=== PATIENT | male | born 1945 | race Caucasian/White ===

== ENCOUNTER 2017-10-26 14:14 | Outpatient (CLI) | payer MEDICARE | END 2017-10-26 14:15 | disposition home or self-care (01) | LOC: BICMAMMO 14:14 | PROVIDERS: ATTEND Family Medicine | DX: N62 Hypertrophy of breast (principal) | CPT/HCPCS: 76642; 77066; G0279 ==

== ENCOUNTER 2017-12-22 12:58 | Outpatient (CLI) | payer MEDICARE ==
[2017-12-22 14:49] LABS: #Basophils 0.1 thou/uL (0.0-0.2); #Eosinphils 0.1 thou/uL (0.0-0.7); #Lymphocytes 2.1 thou/uL (1.20-3.40); #Monocytes 0.5 thou/uL (0.11-0.59); #Neutrophils 2.6 thou/uL (1.40-6.50); %Basophils 1.9 % (0.0-1.0); %Eosinophils 2.7 % (0.0-10.0); %Monocytes 9.6 % (0.0-10.0); %Neutrophils 47.8 % (42.0-75.0); Hemoglobin 14.1 g/dL (14.0-18.0); Mean Corpuscular HGB CONC 34.4 g/dL (32.0-36.0); Mean Corpuscular Hemoglobin 30.7 pg (27.0-31.0); Mean Corpuscular Volume 89.1 fl (80.0-94.0); Mean Platelet Volume 7.8 fL (7.4-10.4); Platelet Count 213 thou/uL (130-400); RBC Distribution Width 12.4 % (11.5-14.5); Red Blood Cell (RBC) Count 4.59 mill/uL (4.70-6.10); White Blood Cell (WBC) Count 5.5 thou/uL (4.8-10.8)
[2017-12-22 14:56] LABS: PTT 29.6 SEC (22.9-36.1); Prothrombin Time 13.2 SEC (12.0-14.7)
--- NOTE | 2017-12-22 15:04 | RAD ---
TWO VIEWS OF THE CHEST: Comparison: None. History: Pre-operative radiograph. FINDINGS: Two views of the chest show normal sized cardiomediastinal silhouette. There is no evidence of consol idation, mass, or pleural effusion. Degenerative changes are seen in the spine. Post-surgical changes are seen in the left shoulder. IMPRESSION: No evidence of acute cardiopulmonary disease. POS: [facility]
[2017-12-22 15:24] LABS: ALT (SGPT) 18 U/L (8-55); AST (SGOT) 20 U/L (5-34); Albumin 4.6 g/dL (3.4-4.8); Alkaline Phosphatase 61 U/L (40-150); Anion Gap 13 mmol/L (10-20); BUN (Urea Nitrogen) 22 mg/dL (8.4-25.7); Bilirubin, Total 0.5 mg/dL (0.2-1.2); Calc. Creatinine Clearance 0 mL/min (70-130); Calcium 10.4 mg/dL (7.8-10.44); Carbon Dioxide 30 mmol/L (23-31); Chloride 103 mmol/L (98-107); Estimated GFR-MDRD 65; Globulin 3.4 g/dL (2.4-3.5); Glucose 86 mg/dL (80-115); Potassium 4.5 mmol/L (3.5-5.1); Sodium 141 mmol/L (136-145)
== END 2017-12-22 12:59 | disposition home or self-care (01) ==
LOC: LABBT 12:58
PROVIDERS: ATTEND Internal Medicine Cardiovascular Disease
DX: Z01.818 Encounter for other preprocedural examination (principal); R94.39 Abnormal result of other cardiovascular function study
CPT/HCPCS: 71046; 80053; 85025; 85610; 85730; 93005; 93010

== ENCOUNTER 2017-12-23 05:49 | Day surgery (SDC) | payer MEDICARE ==
[2017-12-22 13:39] VITALS: BMI 25.9
[2017-12-23] MEDS ORDERED: Lidocaine 2 gm/D5W 500 ml 0 ML ONE (06:34)
[2017-12-23] MEDS ORDERED: Lidocaine 1% (PF) 30 ML VIAL ONE (06:34)
[2017-12-23] MEDS ORDERED: Heparin 10,000 UNITS/1 ML VIAL ONE (06:34)
[2017-12-23 06:59] LABS: Cardiac Risk 3.6 (Less than 4.5)
[2017-12-23] MEDS ORDERED: Protamine Sulfate 50 MG/5 ML VIAL ONE (07:37)
[2017-12-23] MEDS ORDERED: Carvedilol 3.125 MG TAB ONE (08:35)
[2017-12-23] MEDS ORDERED: Lisinopril 2.5 MG TAB ONE ×2 (08:36)
[2017-12-23] MEDS ORDERED: Sodium Chloride 0.9% 1,000 ML IV SCH (08:39)
[2017-12-23] MEDS ORDERED: traMADol HCl 50 MG TAB PO PRN (08:39)
[2017-12-23] MEDS ORDERED: Nitroglycerin 0.4 MG TAB (25 Tab Bottle) SL PRN (08:39)
[2017-12-23] MEDS ORDERED: Acetaminophen/Codeine 30-300mg Tablet PO PRN ×2 (08:39)
[2017-12-23] MEDS ORDERED: Carvedilol 3.125 MG TAB PO SCH (09:00)
[2017-12-23] MEDS ORDERED: Furosemide 20 MG TAB PO SCH (09:00)
[2017-12-23] MEDS ORDERED: Lisinopril 5 MG TAB PO SCH (09:00)
[2017-12-23] MEDS ORDERED: Iopamidol 370 76% 50 ML VIAL FS ONE (12:17)
[2017-12-23] MEDS ORDERED: Iopamidol 370 76% 100 ML VIAL ONE (12:17)
--- NOTE | 2017-12-23 14:30 | DIS ---
Discharge after cardiac catheterization. Mr. Mark was observed during the day and then discharged. At catheterization, he had ejection fract ion of 35%-40% with mild to moderate mitral regurgitation and minimal coronary artery disease with 20 % proximal LAD and 20% proximal RCA. His precatheterization EKG showed atrial fibrillation which was a new finding for him. He was in sinus rhythm during the catheterization. With his paroxysmal atrial fibrillation and left ventricular dysfunction, his medications were change d. Amlodipine was discontinued. Instead he was placed on carvedilol 3.125 b.i.d., lisinopril 5 mg q .a.m., aspirin 81 daily, atorvastatin 20 daily, fish oil 1000 mg 2 b.i.d. Also, 3 days after cathete rization, he will start Eliquis 5 mg b.i.d. A 30-day monitor will be placed to assess for suppressio n of his atrial fibrillation with carvedilol. Amiodarone may need to be added; however, I would like further proof that this medication would really need to be added long-term.
== END 2017-12-23 16:00 | disposition home or self-care (01) ==
LOC: CCL 05:49
PROVIDERS: ATTEND Internal Medicine Cardiovascular Disease
DX: I25.10 Atherosclerotic heart disease of native coronary artery without angina pectoris (principal); I34.0 Nonrheumatic mitral (valve) insufficiency; I10 Essential (primary) hypertension; E78.00 Pure hypercholesterolemia, unspecified; I87.2 Venous insufficiency (chronic) (peripheral); N62 Hypertrophy of breast; Z87.891 Personal history of nicotine dependence; Z79.82 Long term (current) use of aspirin; Z79.899 Other long term (current) drug therapy
CPT/HCPCS: 80061; 85347; 93460; 93561; C1769; J1644; J2001; J2720

== ENCOUNTER 2018-05-14 15:10 | Outpatient (CLI) | payer MEDICARE ==
--- NOTE | 2018-05-14 16:41 | MRI ---
MRI LUMBAR SPINE NONCONTRAST: 05/14/18 HISTORY: Low back pain with left leg radiculopathy. FINDINGS: Radiographs are not available for direct correlation, therefore the lowest lumbar type vertebra will be designated as L5, with the remainder numbered accordingly. The conus medullaris has a normal appearance. Vertebral body heights and alignment are maintained. De siccation of all of the intervertebral discs. T12-L1, L1-2: Mild osteophytosis. Central canal and neural foramina are patent. L2-L3: Mild posterior disc bulge. Osteophytosis of the facets. Thecal sac remains patent. Mild right foraminal stenosis. L3-4: Disc space narrowing. Posterior disc bulge and circumferential degenerative changes. Mild steno sis of the central canal. Severe bilateral foraminal stenosis. L4-5: Mild disc space narrowing. Far left lateral disc protrusion compresses the left L4 nerve root w ithin the neural foramen on the sagittal images. Thecal sac is patent. Mild to moderate right foramin al stenosis. L5-S1: Osteophytosis of the facets. Mild to moderate bilateral foraminal stenoses. IMPRESSION: Multilevel degenerative changes. Far left lateral disc protrusion at the L4-5 level compressing the l eft L4 nerve root. Clinical correlation regarding the left L4 dermatome is required. There is also se gilbert stenosis of the right neural foramen at the L3-4 level. Clinical correlation regarding the right L3 dermatome is required. POS: [facility]
== END 2018-05-14 15:11 | disposition home or self-care (01) ==
LOC: TBSIIMAG 15:10
PROVIDERS: ATTEND Orthopaedic Surgery
DX: M48.061 Spinal stenosis, lumbar region without neurogenic claudication (principal); M47.816 Spondylosis without myelopathy or radiculopathy, lumbar region; M47.26 Other spondylosis with radiculopathy, lumbar region; M99.83 Other biomechanical lesions of lumbar region
CPT/HCPCS: 72148

== ENCOUNTER 2018-06-21 08:33 | Outpatient (CLI) | payer MEDICARE ==
--- NOTE | 2018-06-21 09:50 | RAD ---
CERVICAL SPINE SERIES WITH FLEXION AND EXTENSION THREE VIEWS: History: Neck pain, right hand and wrist pain. FINDINGS: The bones appear demineralized. Vertebral bodies are normal in height. Prominent anterior osteophytic changes are seen and fairly pronounced degenerative facet change noted. Some fairly minimal disc lenora rowing is seen at C3-4, C5-6, and C6-7. There is very limited motion in either the flexion or extensi on views. I do not see any abnormal motion. IMPRESSION: Moderate arthritic changes of the spine. POS: [facility]
--- NOTE | 2018-06-21 10:37 | MRI ---
MRI CERVICAL SPINE NONCONTRAST: Date: 06-21-18 History: 73-year-old male with M54.12, cervical radiculopathy and M54.2, cervicalgia-neck pain. Comparison: No prior MRIs or CTs of the cervical spine. FINDINGS: Cervical spinal cord is normal in size and signal. Incidentally, there is a very thin, short, focus o f syrinx at the T3 level in the upper thoracic spine, with a caliber of approximately 1 mm, and crani ocaudal length of approximately 1 cm. There are bridging osteophytes at C4-5-6. Vertebral body heights are maintained. There is mild disc s pace narrowing at all levels of the cervical spine. There are broad based disc/osteophyte bar complex es encroaching upon the anterior aspect of the spinal canal, and ligamentum flavum thickening encroac crow upon the posterior aspect of the spinal canal, throughout all levels. This is greatest at C6-7. There are uncinate process osteophytes that encroach upon the neural foramina at all levels. There ar e degenerative facet changes bilaterally at all levels, asymmetrically greater on the right (severe o n the right at C2-3, C3-4, and C4-5). Moderate and mild degenerative facet changes at other levels. T he findings by individual levels are as follows: C1-2: Mild central stenosis. C2-3: Moderate central stenosis. Moderate to severe right neural foraminal stenosis. Moderate left ne ural foraminal stenosis. C3-4: Moderate to severe central stenosis. Severe bilateral neural foraminal stenosis. C4-5: Moderate central stenosis. Severe bilateral neural foraminal stenosis. C5-6: In addition to the broad based disc/osteophytic bar complex there is a more focal right paracen tral disc osteophyte complex which contacts the right ventral surface of the spinal cord. The ligamen cathie flavum thickening at this level is mild. Overall mild degree of central spinal canal stenosis. Se gilbert right neural foraminal stenosis. Moderate to severe left neural foraminal stenosis. C6-7: Severe central spinal canal stenosis, with moderate ligamentum flavum thickening abutting the d orsal surface of the spinal cord and prominent broad based/osteophytic bar complex abutting the ventr al aspect of the spinal canal, resulting in pincer-like appearance of cord entrapment as seen on sagi ttal images. Severe bilateral neural foraminal stenosis. C7-T1: No central stenosis. Moderate to severe bilateral neural foraminal stenosis. IMPRESSION: 1. High grade cervical spondylosis with multilevel degenerative disc disease and facet osteoarthrosis . 2. The facet osteoarthrosis is asymmetrically more severe on the right than left. 3. Multilevel high grade central spinal canal stenosis, and multilevel severe bilateral neural forami nal stenosis. 4. The worst degree of central stenosis is at C6-7 (severe). 5. Incidental finding of tiny focus of hydromyelia at T3. POS: [facility]
== END 2018-06-21 08:34 | disposition home or self-care (01) ==
LOC: TBSIIMAG 08:33
PROVIDERS: ATTEND Surgery
DX: M47.22 Other spondylosis with radiculopathy, cervical region (principal); M50.10 Cervical disc disorder with radiculopathy, unspecified cervical region; M48.02 Spinal stenosis, cervical region
CPT/HCPCS: 72040; 72141

== ENCOUNTER 2018-09-28 04:57 | Outpatient (CLI) | payer MEDICARE ==
[2018-09-28 12:21] LABS: Hemoglobin 13.1 g/dL (14.0-18.0); Mean Corpuscular HGB CONC 33.1 g/dL (32.0-36.0); Mean Corpuscular Volume 90.5 fL (78.0-98.0); Mean Platelet Volume 7.7 fL (7.4-10.4); Platelet Count 221 thou/uL (130-400); RBC Distribution Width 12.7 % (11.5-14.5); Red Blood Cell (RBC) Count 4.38 mill/uL (4.70-6.10); White Blood Cell (WBC) Count 5.7 thou/uL (4.8-10.8)
[2018-09-28 12:23] LABS: INR-International Normal Ratio 1.4; Prothrombin Time 17.7 SEC (12.0-14.7)
[2018-09-28 12:24] LABS: PTT 40.3 SEC (22.9-36.1)
[2018-09-28 12:41] LABS: Anion Gap 12 mmol/L (10-20); BUN (Urea Nitrogen) 15 mg/dL (8.4-25.7); Calc. Creatinine Clearance 0 mL/min (70-130); Carbon Dioxide 27 mmol/L (23-31); Chloride 105 mmol/L (98-107); Estimated GFR-MDRD 68; Glucose 111 mg/dL (83-110); Potassium 4.3 mmol/L (3.5-5.1); Sodium 140 mmol/L (136-145)
== END 2018-09-28 04:58 | disposition home or self-care (01) ==
LOC: LABBT 04:57
PROVIDERS: ATTEND Surgery
DX: Z01.812 Encounter for preprocedural laboratory examination (principal); M48.02 Spinal stenosis, cervical region; M54.12 Radiculopathy, cervical region
CPT/HCPCS: 80048; 85027; 85610; 85730

== ENCOUNTER 2018-10-05 09:02 | Inpatient (IN) | payer MEDICARE ==
[2018-09-28 10:59] VITALS: BMI 26.5
[2018-10-05] MEDS ORDERED: Fentanyl 100 MCG/2 ML VIAL ONE ×3 (10:16→17:09)
[2018-10-05] MEDS ORDERED: Lidocaine 1% PF 5 ML VIAL ONE ×3 (10:17→13:34)
[2018-10-05] MEDS ORDERED: Rocuronium Bromide 50 MG/5 ML VIAL ONE (10:17)
[2018-10-05] MEDS ORDERED: PROPOFOL 20 ML ONE (10:17)
[2018-10-05 11:34] LABS: PTT 33.3 SEC (22.9-36.1); Prothrombin Time 13.5 SEC (12.0-14.7)
[2018-10-05] MEDS ORDERED: Thrombin 5000 UNITS/5 ML VIAL ONE (12:05)
[2018-10-05] MEDS ORDERED: Sodium Chloride 0.9% 10 ML ONE (12:05)
[2018-10-05] MEDS ORDERED: Rocuronium Bromide 10 MG/ML (10ML VIAL) ONE (13:34)
[2018-10-05] MEDS ORDERED: Glycopyrrolate 0.2 MG/ML 5 ML SYRINGE ONE (13:34)
[2018-10-05] MEDS ORDERED: ePHEDrine 50 MG/ML VIAL ONE (13:34)
[2018-10-05] MEDS ORDERED: Ondansetron PF 4 MG/2 ML Vial ONE (13:34)
[2018-10-05] MEDS ORDERED: PROVENTIL INHALER 6.7 G (200 INHALATIONS) ONE (13:34)
[2018-10-05] MEDS ORDERED: Dexamethasone 20 MG/5 ML VIAL ONE ×2 (13:34)
[2018-10-05] MEDS ORDERED: Vecuronium 10 MG VIAL ONE (13:34)
[2018-10-05] MEDS ORDERED: PROPOFOL 200 MG/20 ML VIAL ONE (13:34)
[2018-10-05] MEDS ORDERED: Albuterol Sulfate HFA (OR ONLY) ONE (14:59)
[2018-10-05] MEDS ORDERED: Meperidine HCl/PF 25 MG/ML VIAL SLOW IVP PRN (15:18)
[2018-10-05] MEDS ORDERED: PACU-Morphine 4MG/ML VIAL SLOW IVP PRN (15:18)
[2018-10-05] MEDS ORDERED: Morphine Sulfate 2 MG/ML SYRINGE SLOW IVP PRN (15:18)
[2018-10-05] MEDS ORDERED: HYDROmorphone 2 MG/ML VIAL SLOW IVP PRN (15:18)
[2018-10-05] MEDS ORDERED: Ondansetron HCl/PF 4 MG/2 ML Vial IVP PRN (15:18)
[2018-10-05] MEDS ORDERED: Promethazine HCl 25 MG/ML VIAL SLOW IVP PRN (15:18)
[2018-10-05] MEDS ORDERED: Promethazine HCl 25 MG/ML VIAL IM PRN (15:18)
[2018-10-05] MEDS ORDERED: Milk Of Magnesia 30 ML UDCUP PO PRN (15:19)
[2018-10-05] MEDS ORDERED: Bisacodyl 10 MG SUPP PR PRN (15:19)
[2018-10-05] MEDS ORDERED: Acetaminophen/Codeine 30-300mg Tablet PO PRN (15:19)
[2018-10-05] MEDS ORDERED: Fleet Enema 133 ML BOT PR PRN (15:19)
[2018-10-05] MEDS ORDERED: traMADol HCl 50 MG TAB PO PRN (15:19)
[2018-10-05] MEDS ORDERED: Acetaminophen 325 MG TAB PO PRN (15:19)
[2018-10-05] MEDS ORDERED: Morphine 4 MG/ML VIAL SLOW IVP PRN (15:19)
[2018-10-05] MEDS ORDERED: Mag-Al 1200 mg/1200 mg/30 ML UDCUP PO PRN (15:19)
[2018-10-05] MEDS ORDERED: Fluticasone Propionate Nasal Spray 16 gm Bottle NASAL PRN (15:20)
[2018-10-05] MEDS: Sodium Chloride 0.9% 1,000 ML IV SCH (18:29)
[2018-10-05] MEDS: CEFAZOLIN 2 GM in Premix Bag 1 BAG IVPB SCH (18:29)
[2018-10-05] MEDS: Amlodipine 5 MG TAB PO SCH (20:40)
[2018-10-05] MEDS: Ezetimibe 10 MG TAB PO SCH (20:41)
[2018-10-05] MEDS: Atorvastatin Calcium 40 MG TAB PO SCH (20:41)
[2018-10-05] MEDS: Carvedilol 3.125 MG TAB PO SCH (20:41)
[2018-10-05] MEDS: HYDROcodone/Acetaminophen 7.5/325 mg Tablet PO PRN (20:55)
[2018-10-06] MEDS: CEFAZOLIN 2 GM in Premix Bag 1 BAG IVPB SCH ×3 (01:06→17:20)
[2018-10-06] MEDS: HYDROcodone/Acetaminophen 7.5/325 mg Tablet PO PRN ×3 (01:06→21:44)
[2018-10-06] MEDS: Sodium Chloride 0.9% 1,000 ML IV SCH ×2 (04:44→17:25)
[2018-10-06] MEDS: Amiodarone 200 MG TAB PO SCH (08:37)
[2018-10-06] MEDS: Furosemide 20 MG TAB PO SCH (08:37)
[2018-10-06] MEDS: Carvedilol 3.125 MG TAB PO SCH ×2 (08:38→21:37)
--- NOTE | 2018-10-06 10:47 | PRG ---
DATE OF SERVICE: 10/06/2018 SUBJECTIVE: Mr. Mark is postoperative day 1 from C6-7 ACDF. He states he has had improvement in his bilateral arm pain. He is about to work with physiatry. He has had 70 mL out from his drain and we will keep this in place. He is significantly dysphonic this morning, but with mild dysphagia. We will continue to watch him today, work with physiatry, and possible discharge tomorrow. Job ID: [id number]
--- NOTE | 2018-10-06 10:50 | OP ---
DATE OF PROCEDURE: 10/05/2018 SENIOR EXAMINER: Shahab Landrum PA-C PREPROCEDURE DIAGNOSIS: Cervical stenosis with myelopathy and radiculopathy. POSTPROCEDURE DIAGNOSIS: Cervical stenosis with myelopathy and radiculopathy. PROCEDURES PERFORMED: 1. C6-C7 anterior diskectomy for decompression of spinal cord and nerve roots. 2. Placement of interbody spacer following preparation of endplates, packed with local bone autograft obtained from same incision allograft C6-C7 for arthrodesis. 3. Anterior cervical plate and screw fixation, C6-C7. 4. Use of operative microscope for microdissection. DESCRIPTION OF PROCEDURE: After informed consent was obtained from the patient, the patient was brought to the OR. Proper patient, pause and identification were carried out. He was placed under excellent general endotracheal anesthesia and positioned supine on the OR table. Cervical spine was kept in neutral position. We identified a linear evan that would allow for approach to the C6-C7 segment. This region was sterilely cleansed, prepared, and draped. Proper patient, pause, and identification were carried out. The wound was then opened with combination of sharp, monopolar and blunt dissection, proceeded lateral to the tracheoesophageal bundle medial to the right carotid sheath. His right carotid artery was quite medial and he had a very patulous tracheoesophageal bundle. Retractors were placed. Localization film confirmed our area of interest. We then performed distraction at C6-C7. The microscope was brought in for microdissection. Diskectomy was performed at C6-C7, decompression of neural elements. Interbody spacer appropriate dimension was placed, packed with graft for arthrodesis. We then removed the microscope and anterior cervical plate and screw fixation, C6-C7 then occurred. Copious irrigation occurred throughout as did maximizing hemostasis. The wound was then closed in anatomic layers over drain. The patient then emerged from anesthesia. Job ID: [id number]
--- NOTE | 2018-10-06 12:19 | PDOC.PN ---
- Subjective Encounter Start Date: 10/06/18 Encounter Start Time: 08:00 Patient seen and examined. No new complaints. No overnight events - Objective MAR Reviewed: Yes Vital Signs & Weight: Vital Signs (12 hours) Temp Pulse Resp BP Pulse Ox 10/06/18 12:00 97.8 F 56 L 16 134/75 94 L 10/06/18 08:00 97.8 F 60 16 124/69 95 10/06/18 05:55 96 10/06/18 04:00 97.9 F 76 16 127/72 90 L 10/06/18 01:19 97.8 F 58 L 16 153/78 H 93 L Weight Weight 185 lb I&O: 10/05/18 10/06/18 10/07/18 06:59 06:59 06:59 Intake Total 625 250 Output Total 395 Balance 230 250 Radiology Reviewed by me: Yes Phys Exam - Physical Examination Constitutional: NAD HEENT: PERRLA, moist MMs, sclera anicteric Neck: no JVD, supple Respiratory: no wheezing, no rales, no rhonchi Cardiovascular: RRR, no significant murmur, no rub Gastrointestinal: soft, non-tender, no distention, positive bowel sounds Musculoskeletal: no edema, pulses present Neurological: non-focal, normal sensation Lymphatic: no nodes Psychiatric: normal affect Skin: no rash, normal turgor Dx/Plan (1) S/P cervical discectomy Code(s): Z98.890 - OTHER SPECIFIED POSTPROCEDURAL STATES Status: Acute (2) CAD (coronary artery disease) Code(s): I25.10 - ATHSCL HEART DISEASE OF [place] CORONARY ARTERY W/O ANG PCTRS Status: Chronic (3) Cervical spondylosis with myelopathy and radiculopathy Code(s): M47.12 - OTHER SPONDYLOSIS WITH MYELOPATHY, CERVICAL REGION; M47.22 - OTHER SPONDYLOSIS WITH RADICULOPATHY, CERVICAL REGION Status: Chronic (4) Chronic anticoagulation Code(s): Z79.01 - ACID ETCH OPERATOR (CURRENT) USE OF ANTICOAGULANTS Status: Chronic (5) Chronic systolic heart failure, ACC/AHA stage C Code(s): I50.22 - CHRONIC SYSTOLIC (CONGESTIVE) HEART FAILURE Status: Chronic (6) DJD (degenerative joint disease), lumbar Code(s): M47.816 - SPONDYLOSIS W/O MYELOPATHY OR RADICULOPATHY, LUMBAR REGION Status: Chronic (7) Dyslipidemia Code(s): E78.5 - HYPERLIPIDEMIA, UNSPECIFIED Status: Chronic (8) Hypertension Code(s): I10 - ESSENTIAL (PRIMARY) HYPERTENSION Status: Chronic (9) PAF (paroxysmal atrial fibrillation) Code(s): I48.0 - PAROXYSMAL ATRIAL FIBRILLATION Status: Chronic - Plan cont current plan of care, 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 Review of Systems - Review of Systems ENT: negative: Ear Pain, Ear Discharge, Nose Pain, Nose Discharge, Nose Congestion, Mouth Pain, Mouth Swelling, Throat Pain, Throat Swelling, Other Respiratory: negative: Cough, Dry, Shortness of Breath, Hemoptysis, SOB with Excertion, Pleuritic Pain, Sputum, Wheezing Cardiovascular: negative: chest pain, palpitations, orthopnea, paroxysmal nocturnal dyspnea, edema, light headedness, other Gastrointestinal: negative: Nausea, Vomiting, Abdominal Pain, Diarrhea, Constipation, Melena, Hematochezia, Other Genitourinary: negative: Dysuria, Frequency, Incontinence, Hematuria, Retention , Other Musculoskeletal: negative: Neck Pain, Shoulder Pain, Arm Pain, Back Pain, Hand Pain, Leg Pain, Foot Pain, Other - Medications/Allergies Allergies/Adverse Reactions: Allergies Allergy/AdvReac Type Severity Reaction Status Date / Time No Known Allergies Allergy Verified 09/28/18 10:59 Medications: Current Medications Acetaminophen (Tylenol) 650 mg PO Q4H PRN PRN Reason: BARONE/Fever Or Mild Pain (1-3) Acetaminophen/Codeine Phosphate (Tylenol #3) 1 tab PO Q3H PRN PRN Reason: Mild Pain (1-3) Hydrocodone Bitart/Acetaminophen ([place] 7.5/325) 1 tab PO Q4H PRN PRN Reason: Moderate Pain (4-6) Last Admin: 10/06/18 09:57 Dose: 1 tab Al Hydroxide/Mg Hydroxide (Maalox) 30 ml PO Q4H PRN PRN Reason: Indigestion Amiodarone HCl (Cordarone) 200 mg PO DAILY [facility] Last Admin: 10/06/18 08:37 Dose: 200 mg Amlodipine Besylate (Norvasc) 5 mg PO HS [facility] Last Admin: 10/05/18 20:40 Dose: 5 mg Atorvastatin Calcium (Lipitor) 40 mg PO HS [facility] Last Admin: 10/05/18 20:41 Dose: 40 mg Bisacodyl (Dulcolax) 10 mg DE Q12H PRN PRN Reason: Constipation Carvedilol (Coreg) 3.125 mg PO BID [facility] Last Admin: 10/06/18 08:38 Dose: 3.125 mg Ezetimibe (Zetia) 10 mg PO HS [facility] Last Admin: 10/05/18 20:41 Dose: 10 mg Fluticasone Propionate (Flonase Nasal [place]) 0 gm NASAL DAILYPRN PRN PRN Reason: Allergies Furosemide (Lasix) 20 mg PO DAILY [facility] Last Admin: 10/06/18 08:37 Dose: 20 mg Cefazolin Sodium/Dextrose 2 gm (/ Device) 50 mls @ 100 mls/hr IVPB 0200,1000, 1800 [facility] Last Admin: 10/06/18 09:56 Dose: 50 mls Sodium Chloride (Normal Saline 0.9%) 1,000 mls @ 75 mls/hr IV .[id number] [facility] Last Admin: 10/06/18 04:44 Dose: Not Given Magnesium Hydroxide (Milk Of Magnesium) 30 ml PO Q12H PRN PRN Reason: Constipation Morphine Sulfate (Morphine) 2 mg SLOW IVP Q1H PRN PRN Reason: Severe Pain (7-10) Last Admin: 10/05/18 18:30 Dose: 2 mg Sodium Biphosphate/Sodium Phosphate (Fleet Enema) 133 ml DE ONE PRN PRN Reason: Constipation Stop: 10/10/18 15:20 Sodium Chloride (Flush - Normal Saline) 10 ml IVF PRN PRN PRN Reason: Saline Flush Last Admin: 10/06/18 09:57 Dose: 10 ml Tramadol HCl (Ultram) 50 mg PO Q6H PRN PRN Reason: Mild Pain (1-3)
[2018-10-06] MEDS: Amlodipine 5 MG TAB PO SCH (21:36)
[2018-10-06] MEDS: Ezetimibe 10 MG TAB PO SCH (21:36)
[2018-10-06] MEDS: Atorvastatin Calcium 40 MG TAB PO SCH (21:37)
[2018-10-07] MEDS: CEFAZOLIN 2 GM in Premix Bag 1 BAG IVPB SCH ×3 (02:43→18:08)
[2018-10-07] MEDS: Sodium Chloride 0.9% 1,000 ML IV SCH ×2 (07:20→19:58)
--- NOTE | 2018-10-07 09:22 | PDOC.PN ---
- Subjective Encounter Start Date: 10/07/18 Encounter Start Time: 07:50 Patient seen and examined. No new complaints. No overnight events - Objective MAR Reviewed: Yes Vital Signs & Weight: Vital Signs (12 hours) Temp Pulse Resp BP BP Pulse Ox 10/07/18 08:05 52 L 10/07/18 07:57 97.8 F 48 L 16 134/78 94 L 10/07/18 04:00 98 F 49 L 16 144/78 H 92 L 10/07/18 00:00 97.7 F 54 L 16 144/81 H 92 L 10/06/18 21:36 56 L 126/71 Weight Weight 185 lb I&O: 10/06/18 10/07/18 10/08/18 06:59 06:59 06:59 Intake Total 625 1450 Output Total 395 970 Balance 230 480 Phys Exam - Physical Examination Constitutional: NAD HEENT: PERRLA, moist MMs, sclera anicteric cervical collar+, drain+ Respiratory: no wheezing, no rales, no rhonchi Cardiovascular: RRR, no significant murmur, no rub Gastrointestinal: soft, non-tender, no distention, positive bowel sounds Musculoskeletal: no edema, pulses present Neurological: non-focal, normal sensation, moves all 4 limbs Lymphatic: no nodes Psychiatric: normal affect, A&O x 3 Skin: no rash, normal turgor Dx/Plan (1) S/P cervical discectomy Code(s): Z98.890 - OTHER SPECIFIED POSTPROCEDURAL STATES Status: Acute (2) CAD (coronary artery disease) Code(s): I25.10 - ATHSCL HEART DISEASE OF [place] CORONARY ARTERY W/O ANG PCTRS Status: Chronic (3) Cervical spondylosis with myelopathy and radiculopathy Code(s): M47.12 - OTHER SPONDYLOSIS WITH MYELOPATHY, CERVICAL REGION; M47.22 - OTHER SPONDYLOSIS WITH RADICULOPATHY, CERVICAL REGION Status: Chronic (4) Chronic anticoagulation Code(s): Z79.01 - ALF (CURRENT) USE OF ANTICOAGULANTS Status: Chronic (5) Chronic systolic heart failure, ACC/AHA stage C Code(s): I50.22 - CHRONIC SYSTOLIC (CONGESTIVE) HEART FAILURE Status: Chronic (6) DJD (degenerative joint disease), lumbar Code(s): M47.816 - SPONDYLOSIS W/O MYELOPATHY OR RADICULOPATHY, LUMBAR REGION Status: Chronic (7) Dyslipidemia Code(s): E78.5 - HYPERLIPIDEMIA, UNSPECIFIED Status: Chronic (8) Hypertension Code(s): I10 - ESSENTIAL (PRIMARY) HYPERTENSION Status: Chronic (9) PAF (paroxysmal atrial fibrillation) Code(s): I48.0 - PAROXYSMAL ATRIAL FIBRILLATION Status: Chronic - Plan cont current plan of care, PT/OT * pain controlled * drain as per surgeon * discharge per primary team * medically stable * code status- full code * medication reviewed as below * symptomatic treatment. Review of Systems - Review of Systems ENT: negative: Ear Pain, Ear Discharge, Nose Pain, Nose Discharge, Nose Congestion, Mouth Pain, Mouth Swelling, Throat Pain, Throat Swelling, Other Respiratory: negative: Cough, Dry, Shortness of Breath, Hemoptysis, SOB with Excertion, Pleuritic Pain, Sputum, Wheezing Cardiovascular: negative: chest pain, palpitations, orthopnea, paroxysmal nocturnal dyspnea, edema, light headedness, other Gastrointestinal: negative: Nausea, Vomiting, Abdominal Pain, Diarrhea, Constipation, Melena, Hematochezia, Other Genitourinary: negative: Dysuria, Frequency, Incontinence, Hematuria, Retention , Other Musculoskeletal: negative: Neck Pain, Shoulder Pain, Arm Pain, Back Pain, Hand Pain, Leg Pain, Foot Pain, Other - Medications/Allergies Allergies/Adverse Reactions: Allergies Allergy/AdvReac Type Severity Reaction Status Date / Time No Known Allergies Allergy Verified 09/28/18 10:59 Medications: Current Medications Acetaminophen (Tylenol) 650 mg PO Q4H PRN PRN Reason: BARONE/Fever Or Mild Pain (1-3) Acetaminophen/Codeine Phosphate (Tylenol #3) 1 tab PO Q3H PRN PRN Reason: Mild Pain (1-3) Hydrocodone Bitart/Acetaminophen ([place] 7.5/325) 1 tab PO Q4H PRN PRN Reason: Moderate Pain (4-6) Last Admin: 10/06/18 21:44 Dose: 1 tab Al Hydroxide/Mg Hydroxide (Maalox) 30 ml PO Q4H PRN PRN Reason: Indigestion Last Admin: 10/07/18 02:53 Dose: 30 ml Amiodarone HCl (Cordarone) 200 mg PO DAILY [facility] Last Admin: 10/06/18 08:37 Dose: 200 mg Amlodipine Besylate (Norvasc) 5 mg PO HS [facility] Last Admin: 10/06/18 21:36 Dose: 5 mg Atorvastatin Calcium (Lipitor) 40 mg PO HS [facility] Last Admin: 10/06/18 21:37 Dose: 40 mg Bisacodyl (Dulcolax) 10 mg AR Q12H PRN PRN Reason: Constipation Carvedilol (Coreg) 3.125 mg PO BID [facility] Last Admin: 10/06/18 21:37 Dose: 3.125 mg Ezetimibe (Zetia) 10 mg PO HS [facility] Last Admin: 10/06/18 21:36 Dose: 10 mg Fluticasone Propionate (Flonase Nasal [place]) 0 gm NASAL DAILYPRN PRN PRN Reason: Allergies Furosemide (Lasix) 20 mg PO DAILY [facility] Last Admin: 10/06/18 08:37 Dose: 20 mg Cefazolin Sodium/Dextrose 2 gm (/ Device) 50 mls @ 100 mls/hr IVPB 0200,1000, 1800 [facility] Last Admin: 10/07/18 02:43 Dose: 50 mls Sodium Chloride (Normal Saline 0.9%) 1,000 mls @ 75 mls/hr IV .[id number] [facility] Last Admin: 10/07/18 07:20 Dose: Not Given Magnesium Hydroxide (Milk Of Magnesium) 30 ml PO Q12H PRN PRN Reason: Constipation Morphine Sulfate (Morphine) 2 mg SLOW IVP Q1H PRN PRN Reason: Severe Pain (7-10) Last Admin: 10/05/18 18:30 Dose: 2 mg Sodium Biphosphate/Sodium Phosphate (Fleet Enema) 133 ml AR ONE PRN PRN Reason: Constipation Stop: 10/10/18 15:20 Sodium Chloride (Flush - Normal Saline) 10 ml IVF PRN PRN PRN Reason: Saline Flush Last Admin: 10/07/18 02:44 Dose: 10 ml Tramadol HCl (Ultram) 50 mg PO Q6H PRN PRN Reason: Mild Pain (1-3)
[2018-10-07] MEDS: Furosemide 20 MG TAB PO SCH (09:28)
[2018-10-07] MEDS: Carvedilol 3.125 MG TAB PO SCH ×2 (10:16→21:12)
[2018-10-07] MEDS: Amiodarone 200 MG TAB PO SCH (10:16)
[2018-10-07] MEDS ORDERED: Nystatin Powder 15 GM BOT TOP PRN (10:46)
[2018-10-07] MEDS: HYDROcodone/Acetaminophen 7.5/325 mg Tablet PO PRN (14:16)
--- NOTE | 2018-10-07 15:41 | PRG ---
DATE OF SERVICE: 10/07/2018 Mr. Mark is now postoperative day #2 having undergone ACDF. He remains with dysphonia, but is swallowing pills and liquids very well. He has been up walking. He states he has significant posterior neck pain today. Continues to complain of radicular symptoms, and he states the numbness and tingling in his hands have almost completely resolved, although he does have occasional right hand tingling. He has good strengths in the bilateral upper extremities. His drain output has been 20 mL over the last 24 hours. Given the need for continued pain control, we will keep the patient overnight, but likely plan for dismissal in the morning. Please call with any changes in the patient's neurologic status. Job ID: [id number]
[2018-10-07] MEDS: Amlodipine 5 MG TAB PO SCH (21:11)
[2018-10-07] MEDS: Atorvastatin Calcium 40 MG TAB PO SCH (21:12)
[2018-10-07] MEDS: Ezetimibe 10 MG TAB PO SCH (21:12)
[2018-10-08] MEDS: CEFAZOLIN 2 GM in Premix Bag 1 BAG IVPB SCH ×3 (02:18→09:03)
[2018-10-08] MEDS: Furosemide 20 MG TAB PO SCH (09:03)
[2018-10-08] MEDS: Amiodarone 200 MG TAB PO SCH (09:09)
[2018-10-08] MEDS: Carvedilol 3.125 MG TAB PO SCH (09:09)
[2018-10-08] MEDS: Sodium Chloride 0.9% 1,000 ML IV SCH (09:10)
--- NOTE | 2018-10-08 09:54 | PRG ---
DATE OF SERVICE: SUBJECTIVE: Paolo Mark is postoperative day 2 from C6-C7 ACDF. He has had resolution in his upper extremity pain and paresthesias. He is mobilizing. He still has significant dysphonia, but he is tolerating oral clears. His drain output has dwindled and we will plan for removing this. We went over interim postoperative issues and we will plan for dismissal. I would be fine with him resuming his aspirin on the upcoming Thursday and his Eliquis the following Thursday. Job ID: [id number]
--- NOTE | 2018-10-08 10:20 | DIS ---
DATE OF ADMISSION: 10/05/2018 DATE OF DISCHARGE: 10/08/2018 PRIMARY CARE PHYSICIAN: Dirk Gudino MD DISCHARGE DISPOSITION: Home. PRIMARY DISCHARGE DIAGNOSIS: Status post anterior cervical diskectomy and foraminectomy. SECONDARY DISCHARGE DIAGNOSES: Coronary artery disease, cervical spondylosis with myelopathy, degenerative spine disease of lumbar spine, chronic anticoagulation, dyslipidemia, hypertension, paroxysmal atrial fibrillation. PRIMARY PROCEDURE/OPERATION: Anterior cervical diskectomy and foraminectomy by Dr. Arriaga on October 06, 2018. RADIOLOGICAL INVESTIGATION: None. SIGNIFICANT LABS: INR 1.0. DISCHARGE MEDICATIONS: 1. Cordarone 200 mg daily. 2. Norvasc 5 mg p.o. at bedtime. 3. Lipitor 40 mg p.o. at bedtime. 4. Coreg 3.125 mg b.i.d. 5. Zetia 10 mg at bedtime. 6. Flonase nasal spray as needed. 7. Lasix 20 mg daily. 8. The patient will resume Eliquis and aspirin when neurosurgeon clears him. CONTRAINDICATION: None. CODE STATUS: Full code. INPATIENT AUTO SELF SERVICE STATION ATTENDANT: Joo Arriaga MD was primary. Sound Team was consulted for medical management. TEST RESULTS PENDING ON DISCHARGE: None. ALLERGIES: NO KNOWN DRUG ALLERGIES. DISCHARGE PLAN: Posthospital, the patient will follow up with primary care physician in one week. The patient will follow up with Dr. Arriaga as instructed. HOSPITAL COURSE: A 73-year-old male who has chronic cervical spondylosis with radiculopathy. He has severe cervical stenosis and he was admitted electively by Dr. Arriaga for anterior cervical diskectomy and foraminectomy, which was done on October 06 without any complication. Postoperatively, Sound Team was consulted for medical comanagement. The patient's medical problems remained stable. He had drain at the surgical site and cervical collar in place. Drain was removed today by neurosurgeon. This patient was given necessary postoperative instruction by neurosurgeon team. His medical problems remained stable while in hospital. I have seen and examined the patient at bedside today. REVIEW OF SYSTEMS: All review of systems reviewed with him and negative. PHYSICAL EXAMINATION: VITAL SIGNS: Today, vital signs, temperature 97.7, pulse 52, respiratory rate 16, saturation 92%, and blood pressure 139/76. Weight 185 pounds. GENERAL: The patient is currently alert, oriented, in no acute distress. HEENT: Head; normocephalic, atraumatic. NECK: Cervical collar in place. LUNGS: Clear to auscultation without any rhonchi or rales. CARDIAC: S1, S2. Regular without any murmur. ABDOMEN: Soft and benign without any tenderness. EXTREMITIES: No edema. NEUROLOGIC: Nonfocal examination. The patient is medically stable. He will resume above-mentioned medication. Aspirin and Eliquis will be started when neurosurgeon is okay. If neurosurgeon is okay, then this patient is medically stable for discharge today. Job ID: [id number]
[2018-10-08 12:47] VITALS: BP 136/76; TEMP 97.4
== END 2018-10-08 11:10 | disposition home or self-care (01) | DRG 472 ==
LOC: SDC 09:02 → SURG B 15:18
PROVIDERS: ADMIT Surgery; ATTEND Surgery
PROC: 0RG10A0 Fusion of Cervical Vertebral Joint with Interbody Fusion Device, Anterior Approach, Anterior Column, Open Approach (ICD-10-PCS; principal; 2018-10-05)
PROC: 0RB30ZZ Excision of Cervical Vertebral Disc, Open Approach (ICD-10-PCS; 2018-10-05)
DX: M48.02 Spinal stenosis, cervical region (principal); M47.12 Other spondylosis with myelopathy, cervical region; I50.22 Chronic systolic (congestive) heart failure; M54.12 Radiculopathy, cervical region; I25.10 Atherosclerotic heart disease of native coronary artery without angina pectoris; E78.5 Hyperlipidemia, unspecified; I48.0 Paroxysmal atrial fibrillation; I11.0 Hypertensive heart disease with heart failure; R49.0 Dysphonia; R13.10 Dysphagia, unspecified; Z79.01 Long term (current) use of anticoagulants
CPT/HCPCS: 76000; 85610; 85730; C1713; C1776; J0131; J1100; J2001; J2270; J2405; J2704; J3010; J3490

== ENCOUNTER 2018-11-17 13:02 | Outpatient (CLI) | payer MEDICARE ==
--- NOTE | 2018-11-17 13:21 | RAD ---
EXAM: XR Cerv Sp Ap Lat STANDARD PROVIDED CLINICAL HISTORY: Cervical radiculopathy, cervical region disc degenerative changes. Prior postoperative changes cervic al spine. COMPARISON: 06/21/2018 FINDINGS: Diffuse osteopenia is again present. Multilevel degenerative changes of the cervical spine are again noted with prominent osteophytes seen anteriorly. Postoperative changes related to anterior cervical fusion of the C6-7 level with intradiscal prosthesis in place is now present on today's exam ination. No obvious hardware complication is seen. T1 vertebral body is mostly obscured, but no subluxation is seen at the cervicothoracic junction. Post surgical changes of left shoulder are noted which were seen on chest x-ray on 12/22/2017. Prevertebral soft tissues are within normal limits. IMPRESSION: 1. Interval postoperative changes related to anterior cervical fusion at the C6-7 level. 2. Osteopenia and multilevel degenerative changes in the cervical spine.
== END 2018-11-17 13:03 | disposition home or self-care (01) ==
LOC: TBSIIMAG 13:02
PROVIDERS: ATTEND Surgery
DX: M50.30 Other cervical disc degeneration, unspecified cervical region (principal); M47.12 Other spondylosis with myelopathy, cervical region; M48.02 Spinal stenosis, cervical region; M54.02 Panniculitis affecting regions of neck and back, cervical region; M47.22 Other spondylosis with radiculopathy, cervical region; Z98.1 Arthrodesis status; M85.88 Other specified disorders of bone density and structure, other site; Z98.890 Other specified postprocedural states
CPT/HCPCS: 72040

== ENCOUNTER 2019-08-11 14:51 | Outpatient (CLI) | payer MEDICARE ==
--- NOTE | 2019-08-11 17:19 | RAD ---
EXAM: CERVICAL SPINE THREE VIEWS: 08/11/19 HISTORY: Injury from a fall in February, feels like its catching when he is turning his head, stenosis cervical spine. COMPARISON: 11/17/18. FINDINGS: Multilevel disc osteophytosis, severe. Anterior cervical fusion changes at C6-C7. C1 and odontoid are obscured on the AP open mouth and C7 and T1 obscured on the lateral view. No prevertebral soft tissu e swelling. Heterogeneous bone demineralization. Stable appearance from prior study. IMPRESSION: Stable appearing cervical spine. Extensive disc osteophytosis and facet arthrosis evidence for spondy losis. Severe bone demineralization. POS: TPC
== END 2019-08-11 14:52 | disposition home or self-care (01) ==
LOC: TBSIIMAG 14:51
PROVIDERS: ATTEND Surgery
DX: M48.02 Spinal stenosis, cervical region (principal); M47.812 Spondylosis without myelopathy or radiculopathy, cervical region; M25.78 Osteophyte, vertebrae; M81.0 Age-related osteoporosis without current pathological fracture
CPT/HCPCS: 72040

== ENCOUNTER 2019-08-31 16:10 | Outpatient (CLI) | payer MEDICARE ==
--- NOTE | 2019-08-31 16:40 | RAD ---
PA AND LATERAL OF THE CHEST: 08/31/19 INDICATION: History of paroxysmal atrial fibrillation. COMPARISON: Prior exam dated 12/22/17. FINDINGS: The lungs are clear. Heart size is normal. No acute osseous abnormality is noted. Surgical changes i n the left shoulder is similar appearing. There has been interval placement of an ACDF involving the lower cervical spine. IMPRESSION: No acute cardiopulmonary abnormality. POS: CET
== END 2019-08-31 16:11 | disposition home or self-care (01) ==
LOC: BICRAD 16:10
PROVIDERS: ATTEND Nurse Practitioner Family
DX: I48.0 Paroxysmal atrial fibrillation (principal)
CPT/HCPCS: 71046

== ENCOUNTER 2020-01-07 21:32 | Inpatient (IN) | payer MEDICARE, OTHER ==
[~2020-01-07 21:32] MED LIST: Iopamidol-370 76% 500 ML 1 ML ONE
[2020-01-07] MEDS ORDERED: Aspirin Chewable 81 MG TAB ONE (22:00)
[2020-01-07] MEDS ORDERED: Nitroglycerin 2% Ointment 1 INCH/1 GM Packet ONE (22:00)
--- NOTE | 2020-01-07 23:35 | RAD ---
EXAM: CHEST ONE VIEW HISTORY: Chest pain, chest tightness. COMPARISON: 08/31/2019. FINDINGS: The cardiac silhouette and pulmonary vasculature are within normal limits. Mild chronic lung changes are again seen. There is no consolidation or pleural fluid seen. Postoperative changes lower cervical spine and left shoulder are again identified. There is osteopenia. Chest is overall stable c ompared to prior exam. IMPRESSION: Stable mild chronic lung changes without evidence of an acute cardiopulmonary process.
[2020-01-07 23:39] LABS: ALT (SGPT) 226 U/L (8-55); AST (SGOT) 166 U/L (5-34); Albumin 3.3 g/dL (3.4-4.8); Alkaline Phosphatase 98 U/L (40-110); Anion Gap 12 mmol/L (10-20); BUN (Urea Nitrogen) 22 mg/dL (8.4-25.7); Bilirubin, Total 0.4 mg/dL (0.2-1.2); Calc. Creatinine Clearance 0 mL/min (70-130); Calcium 7.8 mg/dL (7.8-10.44); Carbon Dioxide 25 mmol/L (23-31); Chloride 102 mmol/L (98-107); Estimated GFR-MDRD 42; Globulin 2.8 g/dL (2.4-3.5); Glucose 114 mg/dL (83-110); Lipase 20 U/L (8-78); Protein, Total 6.1 g/dL (5.8-8.1); Sodium 135 mmol/L (136-145)
[2020-01-07 23:40] LABS: #Eosinphils 0.1 thou/uL (0.0-0.7); #Monocytes 0.5 thou/uL (0.11-0.59); %Basophils 0.7 % (0.0-1.0); %Eosinophils 2.1 % (0.0-10.0); %Lymphocytes 27.1 % (21.0-51.0); %Monocytes 13.1 % (0.0-10.0); %Neutrophils 56.9 % (42.0-75.0); Hemoglobin 6.8 g/dL (14.0-18.0); Mean Corpuscular HGB CONC 30.5 g/dL (32.0-36.0); Mean Corpuscular Hemoglobin 20.8 pg (27.0-31.0); Mean Corpuscular Volume 68.3 fL (78.0-98.0); Mean Platelet Volume 9.9 fL (7.4-10.4); Platelet Count 167 thou/uL (130-400); RBC Distribution Width 14.9 % (11.5-14.5); Red Blood Cell (RBC) Count 3.28 mill/uL (4.70-6.10); White Blood Cell (WBC) Count 3.5 thou/uL (4.8-10.8)
[2020-01-07 23:41] LABS: Elliptocytes SLIGHT = 2-5 cells (100X) (0-1/hpf); MDiff Complete? YES; Microcytosis SLIGHT = 6-15 cells (100X) (0-5/hpf)
[2020-01-08 04:00] LABS: #Eosinphils 0.1 thou/uL (0.0-0.7); #Lymphocytes 0.9 thou/uL (1.20-3.40); #Monocytes 0.4 thou/uL (0.11-0.59); #Neutrophils 1.8 thou/uL (1.40-6.50); %Basophils 0.1 % (0.0-1.0); %Eosinophils 2.5 % (0.0-10.0); %Lymphocytes 27.2 % (21.0-51.0); %Monocytes 13.2 % (0.0-10.0); %Neutrophils 57.1 % (42.0-75.0); Hemoglobin 6.8 g/dL (14.0-18.0); Mean Corpuscular Hemoglobin 20.2 pg (27.0-31.0); Mean Corpuscular Volume 67.5 fL (78.0-98.0); Mean Platelet Volume 10.9 fL (7.4-10.4); Platelet Count 166 thou/uL (130-400); RBC Distribution Width 15.1 % (11.5-14.5); Red Blood Cell (RBC) Count 3.35 mill/uL (4.70-6.10); White Blood Cell (WBC) Count 3.2 thou/uL (4.8-10.8)
[2020-01-08 04:13] LABS: Iron 13 ug/dL (65-175); Iron Binding Capacity, Total 375 mcg/dL (261-462)
[2020-01-08 04:14] LABS: Anion Gap 12 mmol/L (10-20); BUN (Urea Nitrogen) 22 mg/dL (8.4-25.7); Calc. Creatinine Clearance 0 mL/min (70-130); Carbon Dioxide 25 mmol/L (23-31); Chloride 102 mmol/L (98-107); Estimated GFR-MDRD 52; Glucose 101 mg/dL (83-110); Iron 14 ug/dL (65-175); Iron Binding Capacity, Total 384 mcg/dL (261-462); Potassium 4.5 mmol/L (3.5-5.1); Sodium 134 mmol/L (136-145)
[2020-01-08 04:42] VITALS: BMI 23.8
--- NOTE | 2020-01-08 04:52 | HP ---
REASON FOR ADMISSION: Shortness of breath and chest pain. HISTORY OF PRESENT ILLNESS: This is a 74-year-old male patient who is presenting today reporting an episode of chest pain with shortness of breath. History going back to approximately a week before his presentation, he has been noticing that he has been experiencing shortness of breath, mainly with ambulation, not occurring at rest. Also, he does report postnasal drip which is somewhat chronic as per him. Also, today while walking, he developed shortness of breath and chest pain described as pressure-like in nature, localized in the retrosternal area, nonradiating. In the emergency room, he did receive a nitroglycerin patch and he felt better afterward. Currently, denies any chest pain and denies shortness of breath. He says that his shortness of breath was mainly on exertion. The patient follows with Dr. Ruano of Cardiology on a regular basis. He did see him recently a couple of months ago, and there was a plan for him to follow up with him in a week or so due to the recent symptoms. He did have a cardiac cath done in 2018, that showed an EF of 35% to 40% and minimal coronary artery disease with 20% proximal LAD and 20% proximal RCA. He was noted to have atrial fibrillation, which was at that time, a new finding. He continues to be on Eliquis. PAST MEDICAL HISTORY: 1. Chronic cervical spondylosis with radiculopathy, post anterior cervical diskectomy and foraminectomy. 2. Paroxysmal atrial fibrillation. 3. Coronary artery disease. 4. Chronic systolic heart failure, ACC/AHA, stage C. 5. High cholesterol. 6. High blood pressure. SOCIAL HISTORY: He drinks alcohol socially. Does not smoke. FAMILY HISTORY: Reviewed, found to be noncontributory. REVIEW OF SYSTEMS: All systems reviewed except the above-mentioned shortness of breath, found to be negative. PHYSICAL EXAMINATION: GENERAL: He is awake, alert, oriented, does not appear in distress. VITAL SIGNS: His blood pressure is 136/76, saturating 94% on room air, temperature is 97.4, heart rate 55 beats per minute. HEENT: Head is nontraumatic and normocephalic. Pupils are equal, reactive. Extraocular movements are intact. Nonicteric sclerae. Well injected conjunctivae. Oral mucosa normal. Nasal mucosa normal. NECK: Supple. No adenopathy. No murmur. Thyroid is not palpable. Trachea is midline. No supraclavicular adenopathy. HEART: S1 and S2 regular. No murmur. No gallops. No friction rubs. No displacement of PMI. LUNGS: FINE inspiratory crackles bilaterally. ABDOMEN: Bowel sounds are positive. Nontender abdomen. No hepatosplenomegaly. No lower extremity edema. No cyanosis noted. NEUROLOGIC: Cranial nerves 2 through 12 within normal limits. Normal motor function. Normal sensory function. Normal reflexes. LABORATORY DATA: Blood work shows WBC of 3.5, hemoglobin 6.8. His last hemoglobin was 12 in June 2019, MCV 68.3. His last MCV was 86.7. Platelets 167. Sodium 135, potassium 4, bicarb 25, creatinine of 1.62, his baseline is around 1.26. AST 166, ALT 226. BNP 145.3. EKG shows sinus bradycardia, prolonged QT. A CT of the chest does not show a PE, does show diffuse fibrosis compatible with COPD. The patient is positive for COVID-19. ASSESSMENT AND PLAN: This is a 74-year-old male patient presenting with shortness of breath and episodes of chest pain. He was found to be more anemic than before this day. He was found to be positive for COVID-19. Cardiac: The patient's symptomatology could be due to his anemia exacerbating his underlying coronary artery disease. In the setting of COVID-19, the patient will have serial cardiac enzymes, and I plan to continue his amiodarone and Coreg. We will reassess whether he can be on Eliquis and aspirin. I am planning to recheck his labs to see if really he is that anemic. Might consider consulting Cardiology, might consider consulting Gastroenterology. For deep venous thrombosis prophylaxis, to be on sequential compression devices. In regard to his anemia, we will check iron studies. This could be in the setting of chronic anticoagulation. He does have a propensity to easy bruise. GI: The patient might have chronic slow gastrointestinal bleed, which can explain his anemia. On the other hand, I did ask him if he is having melena, he denied. He said that his stool color is brown, and he never noticed any red blood in the stools. I will start him on IV Protonix. Awaiting to do a guaiac of his stools, possibly consulting Gastroenterology. I did discuss with him his code status. He wishes to be full code. Job ID: [id number]
[2020-01-08] MEDS: Acetaminophen 325 MG TAB PO PRN (05:48)
[2020-01-08 06:25] LABS: Troponin I 0.038 ng/mL (< 0.028)
[2020-01-08] MEDS: Amiodarone 200 MG TAB PO SCH (09:48)
[2020-01-08] MEDS: Pantoprazole 40 MG VIAL IVP SCH ×2 (09:48→20:53)
[2020-01-08] MEDS: Carvedilol 3.125 MG TAB PO SCH ×2 (09:48→20:53)
--- NOTE | 2020-01-08 10:18 | CT ---
PRELIMINARY REPORT/DIRECT RADIOLOGY/EMERGENCY AFTER HOURS PROCEDURE EXAM: CTA Chest with Intravenous Contrast CLINICAL HISTORY: 74-year-old male presents the emergency department via EMS for chest pain and dyspn ea. Patient notes exertional dyspnea for the last couple of weeks. He states that this is gotten appr eciably worse over the last 48 hours. Tonight he began having dyspnea associated with chest pressure after walking only approximately 10 feet. He states that he was unable to walk very far without it re curring. Tonight was the first time he had pain. He does note a cough for the last few days productiv e of a white phlegm. He denies any fevers. TECHNIQUE: Axial CTA images of the chest with intravenous contrast. Three-dimensional MIP/volume rend ered reformations were performed. CONTRAST: With; 60ML ISOVUE 370 COMPARISON: None provided. FINDINGS: PULMONARY ARTERIES There is no intraluminal filling defect suspicious for PE. AORTA No thoracic aortic aneurysm or dissection. Aberrant right subclavian artery. LUNGS The lungs are hyperinflated. Peripheral reticular densities throughout the bilateral lungs. No pulmonary mass. No focal airspace consolidation. PLEURAL SPACES No pleural effusion. No pneumothorax. HEART AND MEDIASTINUM No cardiomegaly. No significant pericardial effusion. The coronary arteries a re calcified. LYMPH NODES Calcified mediastinal and left hilar lymph nodes. BONES The bones are osteopenic. Multilevel degenerative disc disease. CHEST WALL AND UPPER ABDOMEN Multiple calcified granulomas in the liver and spleen. The other upper abdominal organs appear normal. The chest wall is unremarkable. IMPRESSION: No evidence of a pulmonary embolism. The Coronary artery disease. Peripheral fibrotic ch anges throughout the lungs with findings suggestive of COPD. Calcified mediastinal and left hilar lym ph nodes and multiple calcifications in the liver and spleen suggestive of remote granulomatous disea se. ELECTRONICALLY SIGNED BY: Yoni Villegas MD Jan 08, 2020 1:32:07 AM CDT FINAL REPORT EMERGENT AFTER HOURS CT PULMONARY ANGIOGRAM: IMPRESSION: Agree with the preliminary interpretation regarding the absence of evidence for central or segmental pulmonary embolus. Vascular calcification including coronary calcium is demonstrated. Nonspecific p eripheral ground-glass patchy foci with associated subpleural interstitial thickening. Findings coul d reflect acute or chronic interstitial disease. Correlate with concerns for atypical pneumonia. POS: FERNANDO
--- NOTE | 2020-01-08 13:24 | PDOC.HOSPP ---
- Subjective Encounter Date: 01/08/20 Encounter Time: 12:15 Subjective: no sob or nausea no hay bleeding per rectum per patient (atleast he has not noticed) lives with his - Objective Vital Signs & Weight: Vital Signs (12 hours) Temp Pulse Pulse Resp BP BP BP 01/08/20 13:00 97.3 F L 60 19 136/81 01/08/20 12:05 98.2 F 62 17 126/76 01/08/20 10:44 98.1 F 58 L 17 138/78 01/08/20 10:20 98.3 F 58 L 20 121/62 01/08/20 04:20 98.4 F 63 19 143/72 H Pulse Ox 01/08/20 13:00 95 01/08/20 12:05 95 01/08/20 10:44 94 L 01/08/20 10:20 95 01/08/20 04:20 97 Weight Weight 166 lb 6.4 oz I&O: 01/07/20 01/08/20 01/09/20 06:59 06:59 06:59 Intake Total 0 Balance 0 Result Diagrams: 01/08/20 03:48 01/08/20 03:48 Hospitalist ROS - Medication Medications: Active Medications Generic Name Dose Route Start Last Admin Trade Name Freq PRN Reason Stop Dose Admin Acetaminophen 650 mg 01/08/20 05:14 01/08/20 05:48 Tylenol PO 650 mg Q6H PRN Administration Headache/Fever or Pain Amiodarone HCl 200 mg 01/08/20 09:00 01/08/20 09:48 Cordarone PO 200 mg DAILY CARISSA Administration Carvedilol 3.125 mg 01/08/20 09:00 01/08/20 09:48 Coreg PO 3.125 mg BID CARISSA Administration Pantoprazole Sodium 40 mg 01/08/20 09:00 01/08/20 09:48 Protonix IVP 40 mg Q12HR CARISSA Administration - Exam General Appearance: awake alert Eye: PERRL, anicteric sclera ENT: no oropharyngeal lesions, dry oral mucosa Neck: supple, no JVD Heart: RRR, no murmur Respiratory: no wheezes, no rales Gastrointestinal: soft, non-tender, non-distended, normal bowel sounds Extremities: no cyanosis, no edema Neurological: cranial nerve grossly intact, no focal deficits Psychiatric: A&O x 3 Hosp A/P (1) Pneumonia due to COVID-19 virus Code(s): U07.1 - COVID-19; J12.89 - OTHER VIRAL PNEUMONIA Status: Acute (2) Acute blood loss anemia Code(s): D62 - ACUTE POSTHEMORRHAGIC ANEMIA Status: Acute (3) GI bleed Code(s): K92.2 - GASTROINTESTINAL HEMORRHAGE, UNSPECIFIED Status: Suspected Qualifiers: GI bleed type/associated pathology: unspecified gastrointestinal hemorrhage type Qualified Code(s): K92.2 - Gastrointestinal hemorrhage, unspecified (4) CAD (coronary artery disease) Code(s): I25.10 - ATHSCL HEART DISEASE OF [place] CORONARY ARTERY W/O ANG PCTRS Status: Chronic Qualifiers: Coronary Disease-Associated Artery/Lesion type: [place] artery [place] vs. transplanted heart: [place] heart Associated angina: without angina Qualified Code(s): I25.10 - Atherosclerotic heart disease of [place] coronary artery without angina pectoris (5) Chronic systolic heart failure, ACC/AHA stage C Code(s): I50.22 - CHRONIC SYSTOLIC (CONGESTIVE) HEART FAILURE Status: Chronic (6) Dyslipidemia Code(s): E78.5 - HYPERLIPIDEMIA, UNSPECIFIED Status: Chronic (7) Hypertension Code(s): I10 - ESSENTIAL (PRIMARY) HYPERTENSION Status: Chronic Qualifiers: Hypertension type: essential hypertension Qualified Code(s): I10 - Essential (primary) hypertension (8) PAF (paroxysmal atrial fibrillation) Code(s): I48.0 - PAROXYSMAL ATRIAL FIBRILLATION Status: Chronic - Plan he will recieve 1 u prbc, serial H/H if needed will transfuse to keep Hb >7g d/w continue iv protonix q12h selected home meds as above is on room air, may not need any active treatment for covid for now to mobilize in room after blood transfusion prior ef of 30% in 2017.
[2020-01-08] MEDS ORDERED: Albuterol 200 PUFF (6.7GM INHALER) INH SCH (19:15)
[2020-01-08] MEDS: Benzonatate 100 MG CAP PO SCH (20:53)
[2020-01-08] MEDS: guaiFENesin ER 600 MG TAB PO SCH (20:53)
[2020-01-08] MEDS: Ezetimibe 10 MG TAB PO SCH (20:53)
[2020-01-09] MEDS: Albuterol 200 PUFF (6.7GM INHALER) INH SCH ×4 (00:05→17:36)
[2020-01-09] MEDS: Acetaminophen 325 MG TAB PO PRN ×2 (00:05→22:33)
[2020-01-09 03:21] LABS: Troponin I 0.019 ng/mL (< 0.028)
[2020-01-09 03:29] LABS: #Eosinphils 0.1 thou/uL (0.0-0.7); #Lymphocytes 0.8 thou/uL (1.20-3.40); #Monocytes 0.5 thou/uL (0.11-0.59); #Neutrophils 2.3 thou/uL (1.40-6.50); %Basophils 0.6 % (0.0-1.0); %Eosinophils 1.4 % (0.0-10.0); %Lymphocytes 23.2 % (21.0-51.0); %Monocytes 12.5 % (0.0-10.0); %Neutrophils 62.3 % (42.0-75.0); Hemoglobin 8.3 g/dL (14.0-18.0); Mean Corpuscular HGB CONC 30.5 g/dL (32.0-36.0); Mean Corpuscular Hemoglobin 21.7 pg (27.0-31.0); Mean Corpuscular Volume 71.2 fL (78.0-98.0); Mean Platelet Volume 10.9 fL (7.4-10.4); Platelet Count 155 thou/uL (130-400); RBC Distribution Width 16.8 % (11.5-14.5); Red Blood Cell (RBC) Count 3.83 mill/uL (4.70-6.10); White Blood Cell (WBC) Count 3.6 thou/uL (4.8-10.8)
[2020-01-09 03:58] LABS: ALT (SGPT) 191 U/L (8-55); AST (SGOT) 135 U/L (5-34); Albumin 3.2 g/dL (3.4-4.8); Alkaline Phosphatase 96 U/L (40-110); Anion Gap 14 mmol/L (10-20); BUN (Urea Nitrogen) 12 mg/dL (8.4-25.7); Bilirubin, Total 0.5 mg/dL (0.2-1.2); Calc. Creatinine Clearance 71 mL/min (70-130); Calcium 8.1 mg/dL (7.8-10.44); Carbon Dioxide 21 mmol/L (23-31); Chloride 106 mmol/L (98-107); Estimated GFR-MDRD 73; Glucose 97 mg/dL (83-110); Potassium 4.9 mmol/L (3.5-5.1); Protein, Total 6.2 g/dL (5.8-8.1); Sodium 136 mmol/L (136-145)
--- NOTE | 2020-01-09 07:34 | CON ---
DATE OF CONSULTATION: 01/08/2020 REASON FOR CONSULTATION: Microcytic anemia, iron deficiency, chronic anticoagulation, concern for chronic GI blood loss. HISTORY OF PRESENT ILLNESS: Mr. Mark is a 74-year-old gentleman, who over the past several weeks is becoming more short of breath. He had actually set up appointment with his film reproducer, Dr. Ruano. Yesterday, he had tightness across the chest with exertion and walking and just did not feel good, so he decided to come in to the hospital. Here, he was found to be significantly anemic with microcytosis. He had a cough for a couple of days with white phlegm. He was COVID tested, which was positive. He notes that about a week ago, he had eaten some barbecue and had some vomiting and diarrhea, but does not recall melena or any emesis that looked dark or [employer] or coffee like. He denies ever having bleeding in his stools or dark tarry stools. His symptoms were starting before the episode of vomiting last week. He does occasionally get some epigastric pain after eating. It is nonradiating. He does have reflux, for which he will take Tums or Maalox. He has been on anticoagulation for about 2 years for atrial fibrillation. He also takes an [id number] arthritis medicine from [place] called Reumophan. He states that his doctor said that he can take that, but he cannot take ibuprofen or Aleve because it is the same thing. He also takes a baby aspirin a day. He has been hemodynamically stable since arrival. He is receiving some blood now. He has been started on a PPI. He had a colonoscopy in 2014 and also in 2004, both of which were normal. He states he has had his cardiac stress test as an outpatient last year and was fine with that. Other studies; he had a CT scan of the chest on admission last night that showed no signs of pulmonary embolus, nonspecific peripheral ground-glass patchy foci associated with subpleural interstitial thickening. Chest x-ray showed no acute processes. PAST MEDICAL HISTORY: Coronary artery disease, treated medically. He denies history of heart failure, but his H and P states he has had a history of heart failure. Paroxysmal atrial fibrillation. He reports he also has a bad valve in lower part of his heart. Chronic cervical spondylosis with radiculopathy, previous anterior cervical repair. Hyperlipidemia, high blood pressure, diabetes. PAST SURGICAL HISTORY: Includes neck surgery, left shoulder surgery. SOCIAL HISTORY: Drinks alcohol socially. Does not smoke. Does not use drugs. FAMILY HISTORY: Negative for colon cancer or liver disease. REVIEW OF SYSTEMS: Negative for dysphagia, odynophagia, melena, hematochezia, hematemesis, or weight loss. He has not had ulcers before. He has had some sinus irritation. He denies being short of breath now. He has had no high fever, chills, myalgias, arthralgias, or rashes. No change in smell or hearing. Cardiac history reviewed, in 12/2017, EF of 35% to 40% with [id number] MR, minimal coronary artery disease with 20% proximal LAD and 20% proximal RCA. MEDICATIONS: Medications here; 1. Acetaminophen. 2. Protonix 40 IV q.12h. 3. Zetia. 4. Coreg. 5. Amiodarone. PHYSICAL EXAMINATION: VITAL SIGNS: Temperature is 97.3. He has been afebrile since admission. Respirations 19, pulse 62, O2 saturation 95% on room air, blood pressure 136/81. GENERAL: He is resting comfortably in the room. He does not have a mask on. He has a cough at times. LUNGS: Clear. HEART: Regular rate and rhythm without clicks or murmurs. ABDOMEN: Soft and nontender. There is no palpable hepatosplenomegaly. EXTREMITIES: No clubbing, cyanosis, or edema. There is no rash or lesions. LABORATORY STUDIES: White count 3.2; hemoglobin 6.8, it was 6.8 last night at 2300 hours, it was 12 on 07/04/2019. MCV is 67 that was normal in 06/2019, platelet count 166. Sodium 134, potassium 4.5, chloride 102, bicarb 25, BUN and creatinine are 22 and 1.36, baseline 08/2019 was 19 and 1.07. On admission, AST and ALT were 166 and 226. These were normal in December of this year and all previously been normal. Alkaline phosphatase 89. Troponin 0.038, was 0.026 last night. Albumin 3.3, protein 6.1, BNP 145, lipase 20. ASSESSMENT AND PLAN: 1. A 74-year-old gentleman brought in with chest pain, which has worsened over the past couple of days. He has had dyspnea on exertion and some exertional chest discomfort for a couple of weeks now. He was found to be significantly anemic. He was ruled out for myocardial infarction. He has had no signs of PE. He was diagnosed COVID positive as he had some cough and some vague sinus symptoms recently, but is not in respiratory distress. There are no viral symptoms or loss of smell or taste. 2. Microcytic anemia with iron deficiency in the setting of a patient taking chronic blood thinners for 2 years, taking heavy NSAIDs in the outpatient setting from [place] and aspirin a day. This is likely an upper GI blood loss related ulcer from NSAIDs or gastritis. He has no acute hemorrhage at this time, does not need an urgent endoscopy. I would treat this medically with b.i.d. PPI. Hold his blood thinner for a couple of days and hold his NSAIDs for a couple of days. He should be on a lifelong PPI if he is going to be on anticoagulation or NSAIDs in the future. NSAIDs are not in his future at this time. 3. COVID positive with minimal symptoms. No respiratory embarrassment, being addressed by hospital digital developer. 4. Elevated liver enzymes, these are new. In December, they were not elevated. It is unclear if this is related to the COVID, if it is related to some mild ischemia with this chest pain and severe anemia. He has had some epigastric pain after meals. It may be worth getting an ultrasound if these do not improve. Presently, he is asymptomatic, shows no signs of sepsis, cholangitis, and has no right upper quadrant tenderness or epigastric tenderness. We will observe for now. PLAN: 1. I have discussed these issues with his digital developer, Dr. Simmons, and the patient. 2. The patient asked about his being tested for COVID. I told him she may want to talk with her PCP, but I am not sure it is going to change our management at this time. She is apparently asymptomatic at home and doing well. 3. IV PPI q.12h. 4. Liquid diet. 5. If the patient shows signs of overt bleeding, we may have to consider an upper endoscopy. 6. With regard to LFTs, we will recheck those tomorrow. If they trend back down toward normal, we will make nothing of it. If they remain elevated, we will get an ultrasound of the gallbladder and liver and possibly some other testing. We will follow along with you. Job ID: [id number]
[2020-01-09] MEDS: Pantoprazole 40 MG VIAL IVP SCH ×2 (10:20→22:19)
[2020-01-09] MEDS: guaiFENesin ER 600 MG TAB PO SCH ×2 (10:20→22:19)
[2020-01-09] MEDS: Amiodarone 200 MG TAB PO SCH (10:20)
[2020-01-09] MEDS: Benzonatate 100 MG CAP PO SCH ×3 (10:20→22:19)
[2020-01-09] MEDS ORDERED: Dexamethasone 4 mg/ml Vial SLOW IVP SCH (11:33)
--- NOTE | 2020-01-09 11:54 | PDOC.HOSPP ---
- Subjective Encounter Date: 01/09/20 Encounter Time: 10:30 Subjective: feels better this am cough is better, is bringing up yellow mucoid sputum no fever or abd pain. No nausea is ambulating in room - Objective Vital Signs & Weight: Vital Signs (12 hours) Temp Pulse Resp BP BP Pulse Ox 01/09/20 10:15 98.1 F 70 18 152/82 H 94 L 01/09/20 05:24 99.3 F 53 L 13 129/63 95 01/09/20 00:19 99.8 F H 60 20 138/61 92 L Weight Weight 166 lb 6.4 oz I&O: 01/08/20 01/09/20 01/10/20 06:59 06:59 06:59 Intake Total 840 Output Total 700 Balance 140 Result Diagrams: 01/09/20 02:50 01/09/20 02:50 Hospitalist ROS - Medication Medications: Active Medications Generic Name Dose Route Start Last Admin Trade Name Freq PRN Reason Stop Dose Admin Acetaminophen 650 mg 01/08/20 05:14 01/09/20 00:05 Tylenol PO 650 mg Q6H PRN Administration Headache/Fever or Pain Albuterol Sulfate 2 puff 01/09/20 01:00 01/09/20 05:58 Proventil Hfa INH 2 puff [id number] CARISAS Administration Amiodarone HCl 200 mg 01/08/20 09:00 01/09/20 10:20 Cordarone PO 200 mg DAILY CARISSA Administration Benzonatate 100 mg 01/08/20 21:00 01/09/20 10:20 Tessalon PO 100 mg TID ACRISSA Administration Ezetimibe 10 mg 01/08/20 21:00 01/08/20 20:53 Zetia PO 10 mg HS CARISSA Administration Guaifenesin 600 mg 01/08/20 21:00 01/09/20 10:20 Mucinex PO 600 mg Q12HR CARISSA Administration Pantoprazole Sodium 40 mg 01/08/20 09:00 01/09/20 10:20 Protonix IVP 40 mg Q12HR CARISSA Administration - Exam General Appearance: awake alert Eye: PERRL, anicteric sclera ENT: no oropharyngeal lesions, moist mucosa Neck: supple, no JVD Heart: RRR, no murmur Respiratory: no wheezes, no rales, rhonchi Gastrointestinal: soft, non-tender, non-distended, normal bowel sounds, no guarding, no rigidity Extremities: no cyanosis, no edema Neurological: cranial nerve grossly intact, no focal deficits Psychiatric: normal affect, A&O x 3 Hosp A/P (1) Pneumonia due to COVID-19 virus Code(s): U07.1 - COVID-19; J12.89 - OTHER VIRAL PNEUMONIA Status: Acute (2) Acute blood loss anemia Code(s): D62 - ACUTE POSTHEMORRHAGIC ANEMIA Status: Acute (3) GI bleed Code(s): K92.2 - GASTROINTESTINAL HEMORRHAGE, UNSPECIFIED Status: Suspected Qualifiers: GI bleed type/associated pathology: unspecified gastrointestinal hemorrhage type Qualified Code(s): K92.2 - Gastrointestinal hemorrhage, unspecified (4) CAD (coronary artery disease) Code(s): I25.10 - ATHSCL HEART DISEASE OF [place] CORONARY ARTERY W/O ANG PCTRS Status: Chronic Qualifiers: Coronary Disease-Associated Artery/Lesion type: [place] artery [place] vs. transplanted heart: [place] heart Associated angina: without angina Qualified Code(s): I25.10 - Atherosclerotic heart disease of [place] coronary artery without angina pectoris (5) Chronic systolic heart failure, ACC/AHA stage C Code(s): I50.22 - CHRONIC SYSTOLIC (CONGESTIVE) HEART FAILURE Status: Chronic (6) Dyslipidemia Code(s): E78.5 - HYPERLIPIDEMIA, UNSPECIFIED Status: Chronic (7) Hypertension Code(s): I10 - ESSENTIAL (PRIMARY) HYPERTENSION Status: Chronic Qualifiers: Hypertension type: essential hypertension Qualified Code(s): I10 - Essential (primary) hypertension (8) PAF (paroxysmal atrial fibrillation) Code(s): I48.0 - PAROXYSMAL ATRIAL FIBRILLATION Status: Chronic - Plan he recieved 1 u prbc, cbc if needed will transfuse to keep Hb >7g d/w , will add dexamethasone iv daily, no anticoagulants for now. continue iv protonix q12h selected home meds as above is on room air this morning to mobilize in room as tolerated prior ef of 30% in 2017. dc plan in am if stable
--- NOTE | 2020-01-09 15:10 | OP ---
DATE OF PROCEDURE: 01/08/2020 PROCEDURES PERFORMED: Esophagogastroduodenoscopy with control of hemorrhage. ANESTHESIA: General endotracheal anesthesia. POSTPROCEDURE DIAGNOSES: 1. Antral gastritis, biopsied. 2. Ulcer of incisura, 7 mm with visible vessel, cauterized with 10-Burmese heater probe and occluded with a hemoclip. 3. Mild distal esophagitis. RECOMMENDATIONS: IV PPI q.12 hours. Transfuse as needed. Await biopsies. PROCEDURE IN DETAIL: After the patient was informed of the risks, benefits, and possible complications of endoscopy including perforation, reaction to medication, and aspiration, informed consent was obtained. The patient was brought to endoscopy suite, where he was intubated for airway protection and also for the fact that he has finished radiation therapy in his throat for throat cancer. Once his airway was secured, the endoscope was advanced. Through the endoscope, there was necrotic tumor noted in the pharynx, it was nonbleeding. The esophagus was normal except for at the GE junction, there were some signs of reflux esophagitis without any overt erosions. The stomach was entered and there was some heme staining. There was erosive antral gastritis. There was a 7 mm ulcer at the incisura with visible vessel. This was then cauterized with 10-Burmese heater probe and then clipped with a hemostatic clip. There was no bleeding after this. The duodenum and second and third portions were normal. Retroflexed views of stomach were normal. The scope was removed. The patient tolerated the procedure well and there were no complications. Job ID: [id number]
--- NOTE | 2020-01-09 15:29 | PRG ---
DATE OF SERVICE: 01/09/2020 SUBJECTIVE: Mr. Mark has a bit of a cough. Temperature max last night was 99.8. He did get a little bit of oxygen for 2.5 L to keep saturations greater than 95%. Blood pressure 152/82. In talking with the patient, he had normal bowel movement today, brown, that was large, at the end, he saw scan amount of blood, although he has had no melena or other bleeding. I talked with his nurse, there have been no other complications. White count 3.6, hemoglobin 8.3, platelet count 155. D-dimer is 0.28. Sodium 136, potassium 4.9, BUN and creatinine are 12 and 1.1. AST and ALT are 135 and 191, this is down from 66 and 226. Alkaline phosphatase is 96. Troponin is 1.015. BNP is 129. Albumin 3.2, protein 6.2. ASSESSMENT: 1. COVID-19 positive with some milder upper respiratory symptoms. 2. Microcytic anemia with Hemoccult negative stool. This however is a new anemia when compared to June. He was using NSAIDs for arthritis as well as aspirin once daily and his anticoagulation. An upper GI source would be most likely. There are no signs of overt hemorrhage at this time. 3. Elevated liver enzymes improving, possibly related to his COVID diagnosis. 4. Mild COVID. He is being started on steroids secondary to his bout of hypoxia. 5. History of atrial fibrillation, previously on chronic anticoagulation, on hold. RECOMMENDATIONS: 1. Continue IV PPI q.12. Regular diet. If there are overt signs of hemorrhage, endoscopy. Monitor liver function tests. 2. If he needs to get on anticoagulation for COVID or his atrial fibrillation, go ahead and resume that. I have talked these issues with Dr. Simmons, th patient's hospitalist today and the patient and the patient's nurse. Job ID: [id number]
[2020-01-09] MEDS ORDERED: Ondansetron PF 4 MG/2 ML Vial IVP PRN (17:15)
[2020-01-09] MEDS: Ezetimibe 10 MG TAB PO SCH (22:19)
[2020-01-10] MEDS: Albuterol 200 PUFF (6.7GM INHALER) INH SCH ×2 (00:39→06:14)
[2020-01-10 04:54] LABS: #Lymphocytes 0.6 thou/uL (1.20-3.40); #Monocytes 0.2 thou/uL (0.11-0.59); #Neutrophils 2.7 thou/uL (1.40-6.50); %Eosinophils 0.1 % (0.0-10.0); %Lymphocytes 15.9 % (21.0-51.0); %Monocytes 6.6 % (0.0-10.0); %Neutrophils 77.4 % (42.0-75.0); Hemoglobin 7.8 g/dL (14.0-18.0); Mean Corpuscular HGB CONC 31.2 g/dL (32.0-36.0); Mean Corpuscular Hemoglobin 21.7 pg (27.0-31.0); Mean Corpuscular Volume 69.7 fL (78.0-98.0); Mean Platelet Volume 9.9 fL (7.4-10.4); Platelet Count 188 thou/uL (130-400); RBC Distribution Width 17.4 % (11.5-14.5); Red Blood Cell (RBC) Count 3.59 mill/uL (4.70-6.10); White Blood Cell (WBC) Count 3.5 thou/uL (4.8-10.8)
[2020-01-10 05:17] LABS: ALT (SGPT) 178 U/L (8-55); AST (SGOT) 108 U/L (5-34); Albumin 3.6 g/dL (3.4-4.8); Alkaline Phosphatase 100 U/L (40-110); Anion Gap 10 mmol/L (10-20); BUN (Urea Nitrogen) 16 mg/dL (8.4-25.7); Bilirubin, Total 0.5 mg/dL (0.2-1.2); Calc. Creatinine Clearance 61 mL/min (70-130); Calcium 8.6 mg/dL (7.8-10.44); Carbon Dioxide 26 mmol/L (23-31); Chloride 106 mmol/L (98-107); Estimated GFR-MDRD 61; Globulin 2.9 g/dL (2.4-3.5); Glucose 126 mg/dL (83-110); Potassium 4.6 mmol/L (3.5-5.1); Protein, Total 6.5 g/dL (5.8-8.1); Sodium 137 mmol/L (136-145)
[2020-01-10] MEDS ORDERED: Dexamethasone 4 mg/ml Vial SLOW IVP SCH (09:00)
[2020-01-10] MEDS: Acetaminophen 325 MG TAB PO PRN (10:21)
[2020-01-10] MEDS: Benzonatate 100 MG CAP PO SCH (10:22)
[2020-01-10] MEDS: Amiodarone 200 MG TAB PO SCH (10:22)
[2020-01-10] MEDS: guaiFENesin ER 600 MG TAB PO SCH (10:23)
[2020-01-10] MEDS: Pantoprazole 40 MG VIAL IVP SCH (10:23)
[2020-01-10 11:13] VITALS: BP 142/74; TEMP 98.5
--- NOTE | 2020-01-10 14:31 | DIS ---
DATE OF ADMISSION: 01/08/2020 DATE OF DISCHARGE: 01/10/2020 DISCHARGE DISPOSITION: To home. PRIMARY DISCHARGE DIAGNOSES: 1. Gastrointestinal bleed with acute blood loss anemia, stable. 2. COVID-19 virus pneumonia. 3. Coronary artery disease. 4. History of congestive heart failure, which is chronic, stage C, AHA. 5. Dyslipidemia. 6. Hypertension. 7. Paroxysmal atrial fibrillation, in sinus. PROCEDURES DONE DURING HOSPITALIZATION: CT angio chest done on the day of admission showed no evidence of PE. There are peripheral fibrotic changes throughout lungs with findings suggestive of COPD. There are nonspecific peripheral ground-glass patchy foci with associated subpleural interstitial thickening. Serial H and H have remained stable around 8 and 25, it had dropped down to 6.8 and 22, MCV was 69, platelet count 188. BUN 16, creatinine 1.1. AST 108, ALT 178, alkaline phosphatase 100, BNP 129. COVID-19 PCR was positive on 01/07/2020. INPATIENT CONSULT: Dr. Espinosa for Gastroenterology. DISCHARGE PLAN: The patient to follow up with his primary care physician, Dr. Dirk Gudino in 1 week. He needs to follow up with Dr. Espinosa in his clinic in 2 to 3 weeks. DISCHARGE MEDICATIONS: 1. Protonix 40 mg twice daily. 2. Mucinex 600 mg twice daily. 3. Ferrous sulfate 325 mg daily. 4. Dexamethasone 6 mg p.o. daily for another 8 days. 5. Tessalon 100 mg p.o. 3 times daily. 6. Albuterol inhaler q.6 hourly p.r.n. 7. Zetia 10 mg p.o. at bedtime. 8. Coreg 3.125 mg p.o. daily. 9. Amiodarone 200 mg p.o. daily. ALLERGIES: NO KNOWN DRUG ALLERGIES. BRIEF COURSE DURING HOSPITALIZATION: The patient initially came in on the 07 of January with complaints of shortness of breath and chest pain. His initial hemoglobin was around 6.5 g. The patient was unsure if he had GI bleed. His baseline hemoglobin is around 12. The patient has history of coronary artery disease and atrial fibrillation and was apparently on anticoagulants. The patient was also taking NSAIDs for pain. Likely, the patient has peptic ulcer disease. He also tested positive for COVID-19. The patient initially was on oxygen and he was tapered and discontinued. He has had 1 unit of packed cell transfusion done on the 07 of January. His H and H are otherwise remained stable. There is no overt bleeding. His anticoagulation has been held in view of GI bleed. Prior to discharge, he is ambulating and eating well. He was advised to follow up with Dr. Espinosa in [address] Espinosa' office phone number will be provided to the patient for placing followup appointment. He was also advised to stay in quarantine for another 10 days. Please note, I have seen and examined the patient on the day of discharge. Job ID: [id number] MTDD
== END 2020-01-10 12:19 | disposition home or self-care (01) | DRG 177 ==
LOC: ERS 21:32 → 2SW 01-08 02:29
PROVIDERS: ADMIT Internal Medicine; ATTEND Internal Medicine
PROC: 30233N1 Transfusion of Nonautologous Red Blood Cells into Peripheral Vein, Percutaneous Approach (ICD-10-PCS; principal; 2020-01-08)
PROC: 8E0ZXY6 Isolation (ICD-10-PCS; 2020-01-08)
DX: U07.1 COVID-19 (principal); J12.89 Other viral pneumonia; D62 Acute posthemorrhagic anemia; K92.2 Gastrointestinal hemorrhage, unspecified; I50.22 Chronic systolic (congestive) heart failure; I25.10 Atherosclerotic heart disease of native coronary artery without angina pectoris; E78.5 Hyperlipidemia, unspecified; I11.0 Hypertensive heart disease with heart failure; I48.0 Paroxysmal atrial fibrillation; E78.00 Pure hypercholesterolemia, unspecified; Z79.899 Other long term (current) drug therapy; Z79.82 Long term (current) use of aspirin; Z79.01 Long term (current) use of anticoagulants
CPT/HCPCS: 36415; 36430; 71045; 71275; 80048; 80053; 82274; 82728; 83540; 83550; 83690; 83735; 83880; 84484; 85025; 85379; 86140; 86850; 86900; 86901; 93005; C9113; J1100; J2405; P9016; Q9967; U0002

== ENCOUNTER 2020-03-26 06:26 | Outpatient (CLI) | payer MEDICARE, OTHER ==
[2020-03-26 18:28] LABS: Mean Corpuscular HGB CONC 32.5 g/dL (32.0-36.0); Mean Corpuscular Hemoglobin 27.4 pg (27.0-31.0); Mean Corpuscular Volume 84.3 fL (78.0-98.0); Mean Platelet Volume 5.9 fL (7.4-10.4); Platelet Count 202 thou/uL (130-400); Red Blood Cell (RBC) Count 4.37 mill/uL (4.70-6.10); White Blood Cell (WBC) Count 6.1 thou/uL (4.8-10.8)
[2020-03-26 18:34] LABS: PTT 32.6 sec (22.9-36.1)
[2020-03-26 18:56] LABS: Anion Gap 15 mmol/L (10-20); BUN (Urea Nitrogen) 14 mg/dL (8.4-25.7); Calc. Creatinine Clearance 0 mL/min (70-130); Carbon Dioxide 25 mmol/L (23-31); Chloride 105 mmol/L (98-107); Estimated GFR-MDRD Greater than 90; Glucose 101 mg/dL (83-110); Potassium 3.9 mmol/L (3.5-5.1); Sodium 141 mmol/L (136-145)
[2020-03-27 13:23] LABS: SARS-CoV-2 MS2 Positive; SARS-CoV-2 N Gene Negative; SARS-CoV-2 S Gene Negative; SARS-CoV-2 by NAA Not Detected (NotDetected); SARS-CoV-2 orf1ab Negative
== END 2020-03-26 06:27 | disposition home or self-care (01) ==
LOC: LABBT 06:26
PROVIDERS: ATTEND Surgery
DX: Z01.818 Encounter for other preprocedural examination (principal); M48.02 Spinal stenosis, cervical region; M48.062 Spinal stenosis, lumbar region with neurogenic claudication; M51.26 Other intervertebral disc displacement, lumbar region; Z20.828 Contact with and (suspected) exposure to other viral communicable diseases
CPT/HCPCS: 80048; 85027; 85610; 85730; 93005; U0003; 87635; 93010

== ENCOUNTER 2020-03-26 16:30 | Inpatient (IN) | payer MEDICARE, OTHER ==
[2020-03-28 12:08] VITALS: BMI 22.6
[2020-03-29] MEDS ORDERED: PHENYLEPHRINE-NS 100 MCG/ML 10 ML SYRINGE ONE (09:13)
[2020-03-29] MEDS ORDERED: EPHEDRINE 25 MG/5 ML SYRINGE ONE (09:13)
[2020-03-29] MEDS ORDERED: Calcium Chloride 1 GM/10 ML Abboject SYRINGE ONE (09:13)
[2020-03-29] MEDS ORDERED: Glycopyrrolate 0.4 MG/ 2 ML VIAL ONE (09:13)
[2020-03-29] MEDS ORDERED: Rocuronium Bromide 10 MG/ML (10ML VIAL) ONE (09:13)
[2020-03-29] MEDS ORDERED: PROPOFOL 200 MG/20 ML VIAL ONE (09:13)
[2020-03-29] MEDS ORDERED: Lidocaine 1% PF 5 ML VIAL ONE (09:13)
[2020-03-29] MEDS ORDERED: Bacitracin Zinc Ointment 30 gm TUBE ONE (09:39)
[2020-03-29] MEDS ORDERED: Thrombin 5000 UNITS/5 ML VIAL ONE ×3 (09:39→13:38)
[2020-03-29] MEDS ORDERED: Phenylephrine 10 MG/ML VIAL ONE (09:43)
[2020-03-29] MEDS ORDERED: Albumin 5% 500 ML ONE (09:43)
[2020-03-29] MEDS ORDERED: Fentanyl 100 MCG/2 ML VIAL ONE ×4 (09:49→15:11)
[2020-03-29] MEDS ORDERED: SUGAMMADEX SODIUM 200 MG/2 ML VIAL ONE (12:24)
[2020-03-29] MEDS ORDERED: Morphine 10 MG/ML VIAL ONE (12:33)
[2020-03-29] MEDS ORDERED: Milk Of Magnesia 30 ML UDCUP PO PRN (14:40)
[2020-03-29] MEDS ORDERED: Acetaminophen 325 MG TAB PO PRN (14:40)
[2020-03-29] MEDS ORDERED: Bisacodyl 10 MG SUPP PR PRN (14:40)
[2020-03-29] MEDS ORDERED: Fleet Enema 133 ML BOT PR PRN (14:40)
[2020-03-29] MEDS ORDERED: Acetaminophen/Codeine 30-300mg Tablet PO PRN (14:40)
[2020-03-29] MEDS ORDERED: Mag-Al 1200 mg/1200 mg/30 ML UDCUP PO PRN (14:40)
[2020-03-29] MEDS ORDERED: traMADol HCl 50 MG TAB PO PRN (14:40)
[2020-03-29] MEDS ORDERED: diphenhydrAMINE 25 MG CAP PO PRN (14:40)
[2020-03-29] MEDS ORDERED: Diazepam 5 MG TAB PO PRN (14:46)
[2020-03-29] MEDS ORDERED: Ketorolac Tromethamine 30 MG/ML VIAL IVP PRN (14:47)
[2020-03-29] MEDS ORDERED: Meperidine HCl/PF 25 MG/ML VIAL SLOW IVP PRN (14:47)
[2020-03-29] MEDS ORDERED: Ondansetron HCl/PF 4 MG/2 ML Vial IVP PRN (14:47)
[2020-03-29] MEDS ORDERED: Promethazine HCl 25 MG/ML VIAL IM PRN (14:47)
[2020-03-29] MEDS ORDERED: Promethazine HCl 25 MG/ML VIAL SLOW IVP PRN (14:47)
[2020-03-29] MEDS ORDERED: HYDROmorphone 2 MG/ML VIAL SLOW IVP PRN (14:47)
[2020-03-29] MEDS ORDERED: HYDROmorphone 2 MG/ML VIAL ONE (15:11)
[2020-03-29] MEDS ORDERED: Labetalol HCl 100 MG/20 ML VIAL SLOW IVP PRN (16:14)
[2020-03-29] MEDS: CEFAZOLIN 2 GM in Premix Bag 1 BAG IVPB SCH ×2 (17:35→23:59)
[2020-03-29] MEDS: Sodium Chloride 0.9% 1,000 ML IV SCH (17:35)
[2020-03-29] MEDS: Morphine 2 MG/ML VIAL SLOW IVP PRN ×3 (18:49→23:59)
[2020-03-29] MEDS: Atorvastatin Calcium 40 MG TAB PO SCH (19:56)
[2020-03-29] MEDS: Carvedilol 3.125 MG TAB PO SCH (19:56)
[2020-03-29] MEDS: Ezetimibe 10 MG TAB PO SCH (19:57)
[2020-03-29] MEDS: Ferrous Sulfate 325 MG TAB PO SCH (19:57)
[2020-03-29] MEDS: Gabapentin 300 MG CAP PO SCH (19:57)
[2020-03-30] MEDS: HYDROcodone/Acetaminophen 7.5/325 mg Tablet PO PRN ×2 (02:09→14:07)
[2020-03-30] MEDS: Morphine 2 MG/ML VIAL SLOW IVP PRN ×2 (05:10→08:25)
[2020-03-30 05:17] LABS: #Lymphocytes 0.8 thou/uL (1.20-3.40); #Monocytes 0.8 thou/uL (0.11-0.59); #Neutrophils 7.7 thou/uL (1.40-6.50); %Basophils 0.2 % (0.0-1.0); %Eosinophils 0.1 % (0.0-10.0); %Lymphocytes 8.4 % (21.0-51.0); %Monocytes 8.7 % (0.0-10.0); %Neutrophils 82.8 % (42.0-75.0); Hemoglobin 10.4 g/dL (14.0-18.0); Mean Corpuscular HGB CONC 32.5 g/dL (32.0-36.0); Mean Corpuscular Volume 86.2 fL (78.0-98.0); Platelet Count 149 thou/uL (130-400); RBC Distribution Width 21.1 % (11.5-14.5); Red Blood Cell (RBC) Count 3.72 mill/uL (4.70-6.10); White Blood Cell (WBC) Count 9.6 thou/uL (4.8-10.8)
[2020-03-30 05:33] LABS: Anion Gap 11 mmol/L (10-20); BUN (Urea Nitrogen) 17 mg/dL (8.4-25.7); Calc. Creatinine Clearance 89 mL/min (70-130); Calcium 9.2 mg/dL (7.8-10.44); Carbon Dioxide 27 mmol/L (23-31); Chloride 105 mmol/L (98-107); Estimated GFR-MDRD Greater than 90; Glucose 138 mg/dL (83-110); Potassium 4.2 mmol/L (3.5-5.1); Sodium 139 mmol/L (136-145)
[2020-03-30] MEDS ORDERED: Ondansetron PF 4 MG/2 ML Vial IVP PRN (05:44)
[2020-03-30] MEDS: Sodium Chloride 0.9% 1,000 ML IV SCH ×2 (06:04→17:24)
[2020-03-30] MEDS: Polyethylene Glycol 3350 17 GM Packet PO SCH (08:25)
[2020-03-30] MEDS: Gabapentin 300 MG CAP PO SCH ×2 (08:26→21:22)
[2020-03-30] MEDS: Carvedilol 3.125 MG TAB PO SCH ×2 (08:26→21:23)
[2020-03-30] MEDS: CEFAZOLIN 2 GM in Premix Bag 1 BAG IVPB SCH ×2 (08:26→16:11)
[2020-03-30] MEDS: Amiodarone 200 MG TAB PO SCH (08:26)
[2020-03-30] MEDS: Cholecalciferol 1,000 UNITS (25 MCG) TAB PO SCH (08:26)
[2020-03-30] MEDS ORDERED: Dexamethasone 10 MG/ML VIAL SLOW IVP SCH (10:30)
--- NOTE | 2020-03-30 10:51 | PRG ---
DATE OF SERVICE: 03/30/2020 SUBJECTIVE: Mr. Mark has a complicated history. He is postoperative day #1 from C6-C7 laminectomy, assessment of fusion and stabilization for myelopathy. He had multilevel lumbar laminectomy yesterday. 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 We are going to start Decadron. He has significant quadriparesis throughout, but he is able to activate his arms, his hands, his knee extensors and dorsiflexors, toe extensors, but they are all partial range of motion and with significant weakness. He does state that paresthesias of his hands and feet have improved. How much this is a Guillain-Lacona viral-induced encephalomyelitis versus tandem stenosis is unclear. However, by limiting one variable of the tandem stenosis by decompression of the spinal cord and cauda equina, we can now do steroids, rehab and hopefully maximize his outcome. We will check an ultrasound of the legs at this point. Job ID: [id number]
--- NOTE | 2020-03-30 12:13 | ULT ---
EXAM: Bilateral lower extremity venous Doppler US HISTORY: bilateral lower extremity edema and pain, immobility FINDINGS: Grayscale, color-flow, Doppler evaluation, spectral analysis of the bilateral lower extremities venou s structures is performed with 2-D imaging. The bilateral common femoral, superficial femoral, popliteal, posterior tibial, proximal greater saphenous and profunda femoral veins are imaged. There is normal luminal compressibility, flow, and augmentation in the visualized deep venous structu res of the bilateral lower extremities. IMPRESSION: No evidence of a deep vein thrombosis in either lower extremity.
--- NOTE | 2020-03-30 17:02 | OP ---
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 PROCEDURE PERFORMED: 1. C6-C7 laminectomy, partial facetectomy, foraminotomy. 2. Assessment of fusion, C6-C7. 3. C6-C7 posterolateral screw erin fixation. 4. Local bone autograft and allograft, posterolateral arthrodesis initiation, C6-C7. 5. L2-L3, L3-L4 laminectomies, partial facetectomies, foraminotomies. 6. Left L4-L5 hemilaminotomy, foraminotomy. 7. Right L3-L4 transfacet diskectomy for decompression of the exiting right L3 nerve root and removal of lateral far-lateral disk fragments. 8. Use of operative microscope for microdissection. DESCRIPTION OF PROCEDURE: After informed consent was obtained from the patient, the patient was brought to the OR. Proper patient, pause, and identification were carried out. He was placed under excellent general endotracheal anesthesia and positioned prone on the OR table following the fixation in Hernandez pins and cervical spine kept in neutral position. The cervical and lumbar wounds were sterilely cleansed, prepared, and draped, and proper patient, pause, and identification were carried out. The cervical wound was then opened with a combination of sharp, monopolar, and blunt dissection. The C6-C7 segments were exposed. Localization film confirmed area of interest. We then performed a C6-C7 laminectomy, partial facetectomy, and foraminotomy with an assessment of fusion. It did appear as if he had begun some form of fusion in the left C6-C7 facet, but not the right. I opted for arthrodesis initiation posterolaterally with local bone autograft obtained with the incision, allograft. C6-C7 screws were then placed bilaterally with rods. Final tightening occurred. Copious irrigation occurred, maximized hemostasis. The wound was then closed in anatomic layers following the sprinkle of vancomycin powder. We then turned our attention to the lumbar wound and the wound was opened from L2-L5. Localization film confirmed area of interest. I then performed L2-L3, L3-L4 laminectomies, partial facetectomies and foraminotomies and left L4-L5 hemilaminotomy and foraminotomy. We then turned our attention. The microscope was brought in the field and right L3-L4 transfacet discectomy was performed with lateral and far-lateral disk fragments being removed to decompress the exiting L3 nerve root. Copious irrigation occurred throughout as did maximizing hemostasis. There was no spinal fluid leak. The wound was then closed in anatomic layers following sprinkling of vancomycin powder. The patient emerged from anesthesia. Job ID: [id number]
[2020-03-30] MEDS: Dexamethasone 4 MG TAB PO SCH (17:24)
[2020-03-30] MEDS: Ezetimibe 10 MG TAB PO SCH (21:23)
[2020-03-30] MEDS: Atorvastatin Calcium 40 MG TAB PO SCH (21:23)
[2020-03-30] MEDS ORDERED: Ferrous Sulfate 325 MG TAB PO SCH (22:15)
[2020-03-30] MEDS: Ferrous Sulfate 325 MG TAB PO SCH (22:16)
[2020-03-31] MEDS: Dexamethasone 4 MG TAB PO SCH ×5 (00:47→23:16)
[2020-03-31] MEDS: CEFAZOLIN 2 GM in Premix Bag 1 BAG IVPB SCH ×2 (00:47→09:16)
[2020-03-31] MEDS: Sodium Chloride 0.9% 1,000 ML IV SCH (04:23)
--- NOTE | 2020-03-31 08:15 | PRG ---
DATE OF SERVICE: 03/31/2020 Mr. Mark is postoperative day 2, following both a posterior cervical and lumbar procedure with Dr. Arriaga, targeting cauda equina and cervical myelopathy. He already knows this morning that he has had some improvement in the sensation of his hands and legs. He was working with therapy yesterday and states while this was somewhat difficult to tolerate secondary to incisional pain, he still did so quite well. He has no additional complaints at this time and is actually resting quite comfortably in the bed. Plan is to cue up for disposition to inpatient rehab as early as Thursday. We will continue to check in with the rehab liaisons to ensure that this process is smooth and efficient. Job ID: [id number]
[2020-03-31] MEDS: HYDROcodone/Acetaminophen 7.5/325 mg Tablet PO PRN (09:15)
[2020-03-31] MEDS: Gabapentin 300 MG CAP PO SCH ×2 (09:16→20:50)
[2020-03-31] MEDS: Cholecalciferol 1,000 UNITS (25 MCG) TAB PO SCH (09:16)
[2020-03-31] MEDS: Polyethylene Glycol 3350 17 GM Packet PO SCH (09:16)
[2020-03-31] MEDS: Carvedilol 3.125 MG TAB PO SCH ×2 (09:16→20:50)
[2020-03-31] MEDS: Amiodarone 200 MG TAB PO SCH (09:16)
[2020-03-31] MEDS: Ferrous Sulfate 325 MG TAB PO SCH (15:59)
[2020-03-31] MEDS: Ezetimibe 10 MG TAB PO SCH (20:50)
[2020-03-31] MEDS: Atorvastatin Calcium 40 MG TAB PO SCH (20:50)
[2020-04-01] MEDS: Sodium Chloride 0.9% 1,000 ML IV SCH ×2 (03:27→09:10)
[2020-04-01] MEDS: Dexamethasone 4 MG TAB PO SCH ×4 (05:33→23:33)
--- NOTE | 2020-04-01 05:52 | PRG ---
DATE OF SERVICE: 04/01/2020 SUBJECTIVE: Mr. Mark is now on the 3rd day of his postoperative stay after cervical-lumbar procedures by Dr. Arriaga. work with therapy. We are awaiting disposition to rehab, likely the beginning of next week, as early as tomorrow. No additional complaints at this time. Job ID: [id number]
[2020-04-01] MEDS: Amiodarone 200 MG TAB PO SCH (08:35)
[2020-04-01] MEDS: Cholecalciferol 1,000 UNITS (25 MCG) TAB PO SCH (08:35)
[2020-04-01] MEDS: Carvedilol 3.125 MG TAB PO SCH ×2 (08:35→20:10)
[2020-04-01] MEDS: Gabapentin 300 MG CAP PO SCH ×2 (08:35→20:10)
[2020-04-01] MEDS: Polyethylene Glycol 3350 17 GM Packet PO SCH (08:35)
[2020-04-01] MEDS: HYDROcodone/Acetaminophen 7.5/325 mg Tablet PO PRN ×2 (08:40→12:53)
[2020-04-01] MEDS: Ferrous Sulfate 325 MG TAB PO SCH (17:22)
[2020-04-01] MEDS: Atorvastatin Calcium 40 MG TAB PO SCH (20:10)
[2020-04-01] MEDS: Ezetimibe 10 MG TAB PO SCH (20:11)
[2020-04-02] MEDS: Sodium Chloride 0.9% 1,000 ML IV SCH ×2 (00:14→00:38)
[2020-04-02] MEDS: Dexamethasone 4 MG TAB PO SCH ×3 (05:37→18:09)
[2020-04-02] MEDS: Polyethylene Glycol 3350 17 GM Packet PO SCH (09:29)
[2020-04-02] MEDS: Cholecalciferol 1,000 UNITS (25 MCG) TAB PO SCH (09:30)
[2020-04-02] MEDS: Carvedilol 3.125 MG TAB PO SCH ×2 (09:30→21:06)
[2020-04-02] MEDS: HYDROcodone/Acetaminophen 7.5/325 mg Tablet PO PRN ×2 (09:30→14:02)
[2020-04-02] MEDS: Amiodarone 200 MG TAB PO SCH (09:30)
[2020-04-02] MEDS: Gabapentin 300 MG CAP PO SCH ×2 (09:30→21:06)
--- NOTE | 2020-04-02 12:35 | PRG ---
DATE OF SERVICE: 04/02/2020 Mr. Mark is postoperative day #4 after undergoing C6-C7 laminectomy, partial facetectomies, and foraminotomies with posterolateral instrumented fusion on March 29, 2020. Additionally, he simultaneously underwent L2 through L4 laminectomies, partial facetectomies, and foraminotomies, left L4-L5 hemilaminotomy and foraminotomy, and right L3-L4 trans-facet diskectomy on the same date of operation. The patient reports doing well over the weekend. His primary complaint of pain has been lower back pain, and he states that his neck has not been particularly bothersome. He denies significant sharp or shooting pain into his arms or legs. He reports that his preoperative diffuse paresthesias are improved. He continues to have some paresthesias in his hands and feet. However, he states that he is definitely beginning to have return of sensation in his arms and legs. This is very reassuring. He has been working with PT during his hospital stay. He states that yesterday he attempted to stand 3 times during therapy. He feels more and more steady with each attempt. He has yet to ambulate. His indwelling Shabazz catheter remains in place. The patient will be started on Lovenox 40 mg subcutaneous once daily. He has been on scheduled Decadron, and we will begin an 8-day Decadron taper starting today. The patient will be admitted to inpatient rehab for further therapies and mobilization until he is deemed safe to go home. Per the patient request, he would like another night stay in the hospital to work on standing before he goes to rehab. Therefore, our plan will be for the patient to be discharged to inpatient rehab tomorrow. Please call for any neurologic changes or other concerns. Job ID: [id number]
[2020-04-02] MEDS: Ferrous Sulfate 325 MG TAB PO SCH (18:09)
[2020-04-02] MEDS ORDERED: Enoxaparin Sodium 40 MG/0.4 ML SYRINGE SC SCH (21:00)
[2020-04-02] MEDS: Ezetimibe 10 MG TAB PO SCH (21:06)
[2020-04-02] MEDS: Atorvastatin Calcium 40 MG TAB PO SCH (21:06)
[2020-04-03] MEDS: Dexamethasone 4 MG TAB PO SCH ×4 (00:03→17:14)
[2020-04-03] MEDS: Sodium Chloride 0.9% 1,000 ML IV SCH ×2 (05:45→18:19)
[2020-04-03] MEDS ORDERED: Magnesium Citrate 300 ML BOT PO PRN (07:31)
--- NOTE | 2020-04-03 07:59 | PRG ---
DATE OF SERVICE: 04/03/2020 Mr. Mark is postoperative day #5 after undergoing C6-C7 decompression and posterolateral instrumented fusion, as well as multilevel lumbar decompression. He states that he was able to stand 3 times during physical therapy yesterday. He is motivated to begin moving. He continues to endorse that his preoperative paresthesias are improved. His indwelling Shabazz catheter remains in place. He reports passing gas, but he has not had any bowel movements postoperatively. The patient was started on Lovenox 40 mg subcutaneous once daily yesterday. Plan will be to restart aspirin at 7 days post-op and Eliquis at 14 days post-op. He will be started on an 8 day decadron taper today. He can be discharged to inpatient rehab today for further therapies and mobilization. Please call for any neurologic changes or other concerns. Job ID: [id number] MTDD
[2020-04-03] MEDS: Polyethylene Glycol 3350 17 GM Packet PO SCH (08:30)
[2020-04-03] MEDS: Gabapentin 300 MG CAP PO SCH (08:30)
[2020-04-03] MEDS: HYDROcodone/Acetaminophen 7.5/325 mg Tablet PO PRN ×2 (08:31→17:14)
[2020-04-03] MEDS: Cholecalciferol 1,000 UNITS (25 MCG) TAB PO SCH (08:31)
[2020-04-03] MEDS: Amiodarone 200 MG TAB PO SCH (08:32)
[2020-04-03] MEDS: Carvedilol 3.125 MG TAB PO SCH (08:34)
[2020-04-03] MEDS ORDERED: Docusate 100 MG CAP PO SCH (09:00)
--- NOTE | 2020-04-03 10:32 | PRG ---
DATE OF SERVICE: 04/03/2020 Mr. Mark continues to demonstrate slow but steady improvement in regard to his myelopathy along with his viral encephalomyelitis symptoms with that resulted in perioral paresthesias and while those have resolved, he continues to have finger paresthesias, but he does feel as if his legs and feet in particular sensory duval feel better. He is even now standing which is an improvement. We will begin a slow taper of his Decadron. The biggest issue now is we need to get him to inpatient rehab. I would be fine with him going today. I should note that I would be fine with resumption of aspirin only one week from surgery and the Eliquis two weeks from surgery. Job ID: [id number]
[2020-04-03 16:00] VITALS: BP 148/84; TEMP 97.7
[2020-04-03 16:23] LABS: Bilirubin Negative (Negative); Blood, Urine 3+ (Negative); Clarity Turbid (Clear); Glucose, Urine (Dipstick) Normal (Negative); Ketone, Urine Negative (Negative); Leukocyte 75 Leu/uL (Negative); Nitrite Negative (Negative); Protein, Urine (Dipstick) 10 mg/dL (Neg-Trace); RBC/HPF Greater than 50 HPF (0-3); Specific Gravity, Urine 1.014 (1.002-1.036); Squamous Epithelial None Seen HPF (0-3); Urobilinogen Normal mg/dL (Less than 2); WBC/HPF 0-3 HPF (0-3)
[2020-04-03 16:24] LABS: Bacteria/HPF 1+ HPF (None Seen)
[2020-04-03 16:25] LABS: Urine Culture Reflex Yes Yes
[2020-04-03] MEDS: Ferrous Sulfate 325 MG TAB PO SCH (17:14)
[2020-04-03] MEDS ORDERED: Amlodipine 10 MG TAB PO SCH (21:00)
[2020-04-04] MEDS ORDERED: Ubidecarenone 50 MG CAP PO SCH (09:00)
[2020-04-05] MEDS ORDERED: Dexamethasone 1 MG TAB PO SCH (06:00)
[2020-04-07] MEDS ORDERED: Dexamethasone 1 MG TAB PO SCH (06:00)
[2020-04-09] MEDS ORDERED: Dexamethasone 1 MG TAB PO SCH (06:00)
== END 2020-04-03 19:22 | DRG 471 ==
LOC: SURG A 03-29 08:47
PROVIDERS: ADMIT Surgery; ATTEND Surgery
PROC: 0RG1071 Fusion of Cervical Vertebral Joint with Autologous Tissue Substitute, Posterior Approach, Posterior Column, Open Approach (ICD-10-PCS; principal; 2020-03-29)
PROC: 01N10ZZ Release Cervical Nerve, Open Approach (ICD-10-PCS; 2020-03-29)
PROC: 0SB20ZZ Excision of Lumbar Vertebral Disc, Open Approach (ICD-10-PCS; 2020-03-29)
PROC: 01NB0ZZ Release Lumbar Nerve, Open Approach (ICD-10-PCS; 2020-03-29)
DX: M48.02 Spinal stenosis, cervical region (principal); G82.50 Quadriplegia, unspecified; G61.0 Guillain-Barre syndrome; G99.2 Myelopathy in diseases classified elsewhere; G83.4 Cauda equina syndrome; M48.061 Spinal stenosis, lumbar region without neurogenic claudication; M51.26 Other intervertebral disc displacement, lumbar region; M48.062 Spinal stenosis, lumbar region with neurogenic claudication; Z79.899 Other long term (current) drug therapy; Z79.82 Long term (current) use of aspirin; Z79.01 Long term (current) use of anticoagulants; Z79.52 Long term (current) use of systemic steroids
CPT/HCPCS: 36415; 76000; 80048; 81001; 85025; 85027; 85610; 85730; 86850; 86900; 86901; 87086; 87635; 93005; 93970; C1713; J0690; J1100; J1170; J1642; J1650; J2270; J2370; J2405; J2704; J3010; J3370; J3490; J8540; P9045; Q0163; U0003

== ENCOUNTER 2020-05-09 12:29 | Outpatient (CLI) | payer MEDICARE ==
--- NOTE | 2020-05-09 14:42 | RAD ---
CERVICAL SPINE: 05/09/20 Three views. HISTORY: Postop follow-up. COMPARISON: 08/11/19 Anterior plate and screws and disc implants again noted at the C6-7 level. There are new posterior pedicle screws and rods at these levels when compared to prior study. C6 and C7 are poorly evaluated due to artifact from shoulders. There is anterior wedging of the C6 vertebra which is more prominent today than on the prior study. Loss of disc space at C6-7 and mild anterolist hesis at C6-7. There are degenerative changes throughout with anterior osteophytes and facet hypertro phy. IMPRESSION: Postop changes at C6-7 with degenerative changes as described. POS: HEATHW
== END 2020-05-09 12:30 | disposition home or self-care (01) ==
LOC: TBSIIMAG 12:29
PROVIDERS: ATTEND Surgery
DX: Z47.89 Encounter for other orthopedic aftercare (principal); M47.812 Spondylosis without myelopathy or radiculopathy, cervical region; Z98.890 Other specified postprocedural states
CPT/HCPCS: 72040

== ENCOUNTER 2020-09-12 12:09 | Inpatient (IN) | payer MEDICARE ==
[2020-09-12] MEDS ORDERED: Iopamidol-370 76% 500 ML 1 ML ONE (12:11)
[2020-09-12 12:51] LABS: #Eosinphils 0.2 thou/uL (0.0-0.7); #Lymphocytes 1.3 thou/uL (1.20-3.40); #Monocytes 0.6 thou/uL (0.11-0.59); #Neutrophils 3.6 thou/uL (1.40-6.50); %Basophils 0.3 % (0.0-1.0); %Eosinophils 2.7 % (0.0-10.0); %Lymphocytes 22.9 % (21.0-51.0); %Monocytes 10.5 % (0.0-10.0); %Neutrophils 63.7 % (42.0-75.0); Hemoglobin 10.4 g/dL (14.0-18.0); Mean Corpuscular HGB CONC 32.6 g/dL (32.0-36.0); Mean Corpuscular Hemoglobin 28.1 pg (27.0-31.0); Mean Corpuscular Volume 86.1 fL (78.0-98.0); Mean Platelet Volume 8.3 fL (7.4-10.4); Platelet Count 228 thou/uL (130-400); RBC Distribution Width 14.2 % (11.5-14.5); White Blood Cell (WBC) Count 5.7 thou/uL (4.8-10.8)
[2020-09-12 12:59] LABS: INR-International Normal Ratio 1.6; Prothrombin Time 19.4 sec (12.0-14.7)
[2020-09-12 13:06] LABS: ALT (SGPT) 31 U/L (8-55); AST (SGOT) 41 U/L (5-34); Albumin 3.7 g/dL (3.4-4.8); Alkaline Phosphatase 147 U/L (40-110); Anion Gap 13 mmol/L (10-20); BUN (Urea Nitrogen) 15 mg/dL (8.4-25.7); Calc. Creatinine Clearance 0 mL/min (70-130); Calcium 8.6 mg/dL (7.8-10.44); Carbon Dioxide 25 mmol/L (23-31); Chloride 105 mmol/L (98-107); Globulin 3.4 g/dL (2.4-3.5); Glucose 98 mg/dL (83-110); Potassium 4.4 mmol/L (3.5-5.1); Protein, Total 7.1 g/dL (5.8-8.1); Sodium 139 mmol/L (136-145)
[2020-09-12] MEDS ORDERED: Piperacillin/Tazobactam 3.375 GM VIAL ONE (17:36)
[2020-09-12] MEDS ORDERED: Ondansetron PF 4 MG/2 ML Vial IVP PRN (18:26)
[2020-09-12] MEDS ORDERED: HYDROcodone/Acetaminophen 5/325 mg Tablet PO PRN (18:26)
[2020-09-12] MEDS ORDERED: Senokot S 8.6-50 MG TAB PO PRN (18:26)
[2020-09-12] MEDS ORDERED: GUAIFENESIN SF SOLN 200 MG/10 ML UDCUP PO PRN (18:26)
[2020-09-12] MEDS ORDERED: Cepastat Lozenges 1 LOZ PO PRN (18:26)
[2020-09-12] MEDS ORDERED: Bisacodyl 5 MG TAB PO PRN (18:26)
[2020-09-12] MEDS ORDERED: Loperamide HCl 2 MG CAP PO PRN (18:26)
[2020-09-12] MEDS ORDERED: Sodium Chloride 0.65% Nasal 44 ML BOT EA NARE PRN (18:26)
[2020-09-12] MEDS ORDERED: Calcium Carbonate 500 MG ChewTAB PO PRN (18:26)
[2020-09-12] MEDS ORDERED: Loratadine 10 MG TAB PO PRN (18:26)
[2020-09-12] MEDS ORDERED: Zolpidem Tartrate 5 MG TAB PO PRN (18:26)
[2020-09-12] MEDS ORDERED: hydrALAZINE 20 MG/ML VIAL SLOW IVP PRN (18:26)
[2020-09-12] MEDS ORDERED: Guaifenesin DM 100-10/5 ML UDCUP PO PRN (18:26)
[2020-09-12] MEDS ORDERED: Acetaminophen 325 MG TAB PO PRN (18:26)
[2020-09-12] MEDS ORDERED: Bisacodyl 10 MG SUPP PR PRN (18:26)
[2020-09-12] MEDS ORDERED: Ondansetron ODT 4 MG TAB PO PRN (18:26)
[2020-09-12 20:01] VITALS: BMI 25.9
[2020-09-12] MEDS: Atorvastatin Calcium 40 MG TAB PO SCH (20:21)
[2020-09-12] MEDS: Amlodipine 5 MG TAB PO SCH (20:21)
[2020-09-12] MEDS: Gabapentin 300 MG CAP PO SCH (20:21)
[2020-09-12] MEDS: Ezetimibe 10 MG TAB PO SCH (20:21)
[2020-09-12] MEDS: Carvedilol 3.125 MG TAB PO SCH (20:21)
[2020-09-12] MEDS: Piperacillin/Tazobactam 4.5 GM in Sodium Chloride 0.9% 100 ML IVPB SCH (23:52)
[2020-09-13 02:38] LABS: SARS-CoV-2 PCR by NAA Not Detected (NotDetected)
[2020-09-13 05:22] LABS: #Basophils 0.1 thou/uL (0.0-0.2); #Eosinphils 0.1 thou/uL (0.0-0.7); #Lymphocytes 1.1 thou/uL (1.20-3.40); #Monocytes 0.8 thou/uL (0.11-0.59); #Neutrophils 3.8 thou/uL (1.40-6.50); %Basophils 0.9 % (0.0-1.0); %Eosinophils 1.6 % (0.0-10.0); %Lymphocytes 19.5 % (21.0-51.0); %Monocytes 13.1 % (0.0-10.0); %Neutrophils 64.9 % (42.0-75.0); Hemoglobin 9.2 g/dL (14.0-18.0); Mean Corpuscular HGB CONC 31.2 g/dL (32.0-36.0); Mean Corpuscular Hemoglobin 26.8 pg (27.0-31.0); Mean Corpuscular Volume 85.9 fL (78.0-98.0); Mean Platelet Volume 8.3 fL (7.4-10.4); Platelet Count 196 thou/uL (130-400); RBC Distribution Width 14.1 % (11.5-14.5); Red Blood Cell (RBC) Count 3.43 mill/uL (4.70-6.10); White Blood Cell (WBC) Count 5.8 thou/uL (4.8-10.8)
[2020-09-13] MEDS: Piperacillin/Tazobactam 4.5 GM in Sodium Chloride 0.9% 100 ML IVPB SCH ×3 (05:30→18:17)
[2020-09-13 05:50] LABS: ALT (SGPT) 27 U/L (8-55); AST (SGOT) 33 U/L (5-34); Albumin 3.4 g/dL (3.4-4.8); Alkaline Phosphatase 128 U/L (40-110); Anion Gap 10 mmol/L (10-20); BUN (Urea Nitrogen) 13 mg/dL (8.4-25.7); Calc. Creatinine Clearance 79 mL/min (70-130); Calcium 8.5 mg/dL (7.8-10.44); Carbon Dioxide 28 mmol/L (23-31); Chloride 107 mmol/L (98-107); Globulin 2.9 g/dL (2.4-3.5); Glucose 91 mg/dL (83-110); Potassium 4.6 mmol/L (3.5-5.1); Protein, Total 6.3 g/dL (5.8-8.1); Sodium 140 mmol/L (136-145)
[2020-09-13] MEDS: Cholecalciferol 1,000 UNITS (25 MCG) TAB PO SCH (08:36)
[2020-09-13] MEDS: Aspirin 81 mg Enteric Coated Tablet PO SCH (08:36)
[2020-09-13] MEDS: Gabapentin 300 MG CAP PO SCH ×2 (08:36→20:19)
[2020-09-13] MEDS: Carvedilol 3.125 MG TAB PO SCH ×2 (08:38→20:18)
[2020-09-13] MEDS: Amiodarone 200 MG TAB PO SCH (08:38)
[2020-09-13] MEDS: Polyethylene Glycol 3350 17 GM Packet PO SCH (08:38)
[2020-09-13] MEDS: Amlodipine 5 MG TAB PO SCH (20:17)
[2020-09-13] MEDS: Ezetimibe 10 MG TAB PO SCH (20:18)
[2020-09-13] MEDS: Atorvastatin Calcium 40 MG TAB PO SCH (20:18)
[2020-09-14] MEDS: Piperacillin/Tazobactam 4.5 GM in Sodium Chloride 0.9% 100 ML IVPB SCH ×2 (00:57→06:18)
[2020-09-14 07:55] VITALS: TEMP 97.9
[2020-09-14] MEDS ORDERED: Furosemide 40 MG/4 ML VIAL SLOW IVP SCH (08:15)
[2020-09-14] MEDS: Gabapentin 300 MG CAP PO SCH (08:32)
[2020-09-14] MEDS: Aspirin 81 mg Enteric Coated Tablet PO SCH (08:32)
[2020-09-14] MEDS: Amiodarone 200 MG TAB PO SCH (08:32)
[2020-09-14] MEDS: Carvedilol 3.125 MG TAB PO SCH (08:33)
[2020-09-14] MEDS: Cholecalciferol 1,000 UNITS (25 MCG) TAB PO SCH (08:33)
[2020-09-14] MEDS: Polyethylene Glycol 3350 17 GM Packet PO SCH (08:33)
[2020-09-14 11:00] VITALS: BP 108/62
== END 2020-09-14 13:55 | disposition home or self-care (01) | DRG 391 ==
LOC: ERS 12:09 → T4-A 17:45
PROVIDERS: ADMIT Internal Medicine; ATTEND Internal Medicine
DX: K59.00 Constipation, unspecified (principal); I50.33 Acute on chronic diastolic (congestive) heart failure; Z20.822 Contact with and (suspected) exposure to COVID-19; I11.0 Hypertensive heart disease with heart failure; E78.5 Hyperlipidemia, unspecified; E78.00 Pure hypercholesterolemia, unspecified; I25.10 Atherosclerotic heart disease of native coronary artery without angina pectoris; M47.816 Spondylosis without myelopathy or radiculopathy, lumbar region; I48.0 Paroxysmal atrial fibrillation; Z79.01 Long term (current) use of anticoagulants; Z79.82 Long term (current) use of aspirin; Z79.899 Other long term (current) drug therapy
CPT/HCPCS: 36415; 71045; 74177; 76705; 78226; 80053; 83690; 83880; 84443; 84484; 85025; 85610; 85730; 86850; 86900; 86901; 87040; 87635; 93005; 96365; A9537; J1940; J2543; J3490; Q9967; U0003; U0005

== ENCOUNTER 2020-09-30 05:55 | Inpatient (IN) | payer MEDICARE ==
[2020-09-30 06:56] LABS: #Basophils 0.1 thou/uL (0.0-0.2); #Eosinphils 0.1 thou/uL (0.0-0.7); #Lymphocytes 1.5 thou/uL (1.20-3.40); #Monocytes 0.8 thou/uL (0.11-0.59); #Neutrophils 4.4 thou/uL (1.40-6.50); %Basophils 0.8 % (0.0-1.0); %Eosinophils 1.4 % (0.0-10.0); %Lymphocytes 21.6 % (21.0-51.0); %Monocytes 11.6 % (0.0-10.0); %Neutrophils 64.6 % (42.0-75.0); Mean Corpuscular HGB CONC 31.7 g/dL (32.0-36.0); Mean Corpuscular Hemoglobin 26.6 pg (27.0-31.0); Mean Corpuscular Volume 83.8 fL (78.0-98.0); Mean Platelet Volume 8.7 fL (7.4-10.4); Platelet Count 215 thou/uL (130-400); RBC Distribution Width 15.1 % (11.5-14.5); Red Blood Cell (RBC) Count 3.77 mill/uL (4.70-6.10); White Blood Cell (WBC) Count 6.9 thou/uL (4.8-10.8)
[2020-09-30 07:21] LABS: ALT (SGPT) 32 U/L (8-55); AST (SGOT) 42 U/L (5-34); Albumin 3.6 g/dL (3.4-4.8); Alkaline Phosphatase 153 U/L (40-110); Anion Gap 13 mmol/L (10-20); BUN (Urea Nitrogen) 23 mg/dL (8.4-25.7); Calc. Creatinine Clearance 0 mL/min (70-130); Calcium 8.7 mg/dL (7.8-10.44); Carbon Dioxide 25 mmol/L (23-31); Chloride 106 mmol/L (98-107); Globulin 3.1 g/dL (2.4-3.5); Glucose 97 mg/dL (83-110); Lipase 10 U/L (8-78); Potassium 4.1 mmol/L (3.5-5.1); Protein, Total 6.7 g/dL (5.8-8.1); Sodium 140 mmol/L (136-145)
[2020-09-30] MEDS ORDERED: Aspirin Chewable 81 MG TAB ONE (07:52)
[2020-09-30] MEDS ORDERED: Nitroglycerin 2% Ointment 1 INCH/1 GM Packet ONE (07:52)
[2020-09-30] MEDS ORDERED: Furosemide 40 MG/4 ML VIAL ONE ×2 (07:52→13:42)
[2020-09-30] MEDS ORDERED: HYDROcodone/Acetaminophen 5/325 mg Tablet PO PRN (08:33)
[2020-09-30] MEDS ORDERED: Zolpidem Tartrate 5 MG TAB PO PRN (08:33)
[2020-09-30] MEDS ORDERED: Loperamide HCl 2 MG CAP PO PRN (08:33)
[2020-09-30] MEDS ORDERED: Ondansetron ODT 4 MG TAB PO PRN (08:33)
[2020-09-30] MEDS ORDERED: Bisacodyl 10 MG SUPP PR PRN (08:33)
[2020-09-30] MEDS ORDERED: Guaifenesin DM 100-10/5 ML UDCUP PO PRN (08:33)
[2020-09-30] MEDS ORDERED: Ondansetron PF 4 MG/2 ML Vial IVP PRN (08:33)
[2020-09-30] MEDS ORDERED: Calcium Carbonate 500 MG ChewTAB PO PRN (08:33)
[2020-09-30] MEDS ORDERED: Senokot S 8.6-50 MG TAB PO PRN (08:33)
[2020-09-30] MEDS ORDERED: Acetaminophen 325 MG TAB PO PRN (08:33)
[2020-09-30 09:24] LABS: Bacteria/HPF None Seen HPF (None Seen); Bilirubin Negative (Negative); Blood, Urine Negative (Negative); Clarity Clear (Clear); Glucose, Urine (Dipstick) Normal (Negative); Ketone, Urine Negative (Negative); Leukocyte Negative Leu/uL (Negative); Nitrite Negative (Negative); Protein, Urine (Dipstick) Negative (Neg-Trace); RBC/HPF 0-3 HPF (0-3); Specific Gravity, Urine 1.006 (1.002-1.036); Squamous Epithelial None Seen HPF (0-3); Urobilinogen Normal mg/dL (Less than 2); WBC/HPF None Seen HPF (0-3); pH, Urine 7.5 (5.0-9.0)
[2020-09-30] MEDS: Amiodarone 200 MG TAB PO SCH (09:40)
[2020-09-30] MEDS: Carvedilol 3.125 MG TAB PO SCH ×2 (09:40→20:57)
[2020-09-30] MEDS: Aspirin 81 mg Enteric Coated Tablet PO SCH (09:40)
[2020-09-30] MEDS: Apixaban 5 MG TAB PO SCH ×2 (09:40→20:57)
[2020-09-30] MEDS: Gabapentin 400 MG CAP PO SCH ×3 (09:40→20:58)
[2020-09-30] MEDS: Polyethylene Glycol 3350 17 GM Packet PO SCH (10:30)
[2020-09-30 10:33] LABS: Troponin I 0.022 ng/mL (< 0.028)
[2020-09-30 10:52] LABS: SARS-CoV-2 NAA Rapid Test Not Detected (NotDetected)
[2020-09-30] MEDS: Cholecalciferol 1,000 UNITS (25 MCG) TAB PO SCH (13:45)
[2020-09-30] MEDS: Furosemide 40 MG/4 ML VIAL SLOW IVP SCH (13:53)
[2020-09-30 14:10] LABS: Troponin I 0.017 ng/mL (< 0.028)
[2020-09-30 16:50] VITALS: BMI 24.5
[2020-09-30] MEDS: Atorvastatin Calcium 40 MG TAB PO SCH (20:57)
[2020-09-30] MEDS: Ezetimibe 10 MG TAB PO SCH (20:58)
[2020-10-01 04:44] LABS: #Eosinphils 0.2 thou/uL (0.0-0.7); #Lymphocytes 1.7 thou/uL (1.20-3.40); #Monocytes 0.8 thou/uL (0.11-0.59); #Neutrophils 4.8 thou/uL (1.40-6.50); %Basophils 0.6 % (0.0-1.0); %Eosinophils 2.4 % (0.0-10.0); %Monocytes 10.1 % (0.0-10.0); %Neutrophils 64.8 % (42.0-75.0); Hemoglobin 9.9 g/dL (14.0-18.0); Mean Corpuscular HGB CONC 32.3 g/dL (32.0-36.0); Mean Corpuscular Hemoglobin 27.1 pg (27.0-31.0); Mean Corpuscular Volume 83.9 fL (78.0-98.0); Mean Platelet Volume 8.8 fL (7.4-10.4); Platelet Count 226 thou/uL (130-400); RBC Distribution Width 15.1 % (11.5-14.5); Red Blood Cell (RBC) Count 3.65 mill/uL (4.70-6.10); White Blood Cell (WBC) Count 7.5 thou/uL (4.8-10.8)
[2020-10-01 05:07] LABS: Anion Gap 13 mmol/L (10-20); BUN (Urea Nitrogen) 19 mg/dL (8.4-25.7); Calc. Creatinine Clearance 76 mL/min (70-130); Calcium 8.5 mg/dL (7.8-10.44); Carbon Dioxide 28 mmol/L (23-31); Chloride 103 mmol/L (98-107); Glucose 82 mg/dL (83-110); Potassium 3.8 mmol/L (3.5-5.1); Sodium 140 mmol/L (136-145)
[2020-10-01] MEDS: Furosemide 40 MG/4 ML VIAL SLOW IVP SCH ×2 (05:30→14:02)
[2020-10-01] MEDS ORDERED: FLU VACC QS2020-21(65YR UP)/PF 240 MCG/0.7 ML SYRINGE IM ONE (09:00)
[2020-10-01] MEDS: Gabapentin 400 MG CAP PO SCH ×3 (10:40→20:24)
[2020-10-01] MEDS: Aspirin 81 mg Enteric Coated Tablet PO SCH (10:41)
[2020-10-01] MEDS: Apixaban 5 MG TAB PO SCH ×2 (10:42→20:24)
[2020-10-01] MEDS: Cholecalciferol 1,000 UNITS (25 MCG) TAB PO SCH (10:42)
[2020-10-01] MEDS: Amiodarone 200 MG TAB PO SCH (10:43)
[2020-10-01] MEDS: Carvedilol 3.125 MG TAB PO SCH ×2 (10:43→20:23)
[2020-10-01] MEDS: Polyethylene Glycol 3350 17 GM Packet PO SCH (10:43)
[2020-10-01] MEDS: Atorvastatin Calcium 40 MG TAB PO SCH (20:24)
[2020-10-01] MEDS: Ezetimibe 10 MG TAB PO SCH (20:24)
[2020-10-02] MEDS: Furosemide 40 MG/4 ML VIAL SLOW IVP SCH (05:21)
[2020-10-02] MEDS: Aspirin 81 mg Enteric Coated Tablet PO SCH (08:48)
[2020-10-02] MEDS: Polyethylene Glycol 3350 17 GM Packet PO SCH (08:48)
[2020-10-02] MEDS: Carvedilol 3.125 MG TAB PO SCH ×2 (08:48→19:56)
[2020-10-02] MEDS: Amiodarone 200 MG TAB PO SCH (08:48)
[2020-10-02] MEDS: Apixaban 5 MG TAB PO SCH ×2 (08:48→19:56)
[2020-10-02] MEDS: Cholecalciferol 1,000 UNITS (25 MCG) TAB PO SCH (08:48)
[2020-10-02] MEDS: Gabapentin 400 MG CAP PO SCH ×3 (08:54→19:57)
[2020-10-02] MEDS: Furosemide 20 MG TAB PO SCH (14:28)
[2020-10-02] MEDS: Hydrocortisone 1% Cream 30 GM TUBE TOP SCH (16:47)
[2020-10-02] MEDS: Atorvastatin Calcium 40 MG TAB PO SCH (19:57)
[2020-10-02] MEDS: Ezetimibe 10 MG TAB PO SCH (19:57)
[2020-10-03 05:07] LABS: Anion Gap 13 mmol/L (10-20); BUN (Urea Nitrogen) 25 mg/dL (8.4-25.7); Calc. Creatinine Clearance 59 mL/min (70-130); Calcium 9.1 mg/dL (7.8-10.44); Carbon Dioxide 29 mmol/L (23-31); Chloride 101 mmol/L (98-107); Glucose 91 mg/dL (83-110); Potassium 4.2 mmol/L (3.5-5.1); Sodium 139 mmol/L (136-145)
[2020-10-03 08:24] VITALS: BP 128/79; TEMP 97.6
[2020-10-03] MEDS ORDERED: Ubidecarenone 50 MG CAP PO SCH (09:45)
[2020-10-03] MEDS: Gabapentin 400 MG CAP PO SCH (09:59)
[2020-10-03] MEDS: Carvedilol 3.125 MG TAB PO SCH (10:00)
[2020-10-03] MEDS: Cholecalciferol 1,000 UNITS (25 MCG) TAB PO SCH (10:00)
[2020-10-03] MEDS: Furosemide 20 MG TAB PO SCH ×2 (10:00→14:10)
[2020-10-03] MEDS: Apixaban 5 MG TAB PO SCH (10:00)
[2020-10-03] MEDS: Aspirin 81 mg Enteric Coated Tablet PO SCH (10:00)
[2020-10-03] MEDS: Amiodarone 200 MG TAB PO SCH (10:00)
[2020-10-03] MEDS: Polyethylene Glycol 3350 17 GM Packet PO SCH (10:03)
[2020-10-03] MEDS: Hydrocortisone 1% Cream 30 GM TUBE TOP SCH (10:04)
[2020-10-04] MEDS ORDERED: Ubidecarenone 50 MG CAP PO SCH (09:00)
== END 2020-10-03 14:20 | disposition home or self-care (01) | DRG 293 ==
LOC: ERS 05:55 → ERHOLD 08:33 → 2NO 15:51
PROVIDERS: ADMIT Internal Medicine; ATTEND Hospitalist
DX: I11.0 Hypertensive heart disease with heart failure (principal); E78.5 Hyperlipidemia, unspecified; I50.43 Acute on chronic combined systolic (congestive) and diastolic (congestive) heart failure; I25.10 Atherosclerotic heart disease of native coronary artery without angina pectoris; M47.816 Spondylosis without myelopathy or radiculopathy, lumbar region; I42.8 Other cardiomyopathies; I48.0 Paroxysmal atrial fibrillation; D64.9 Anemia, unspecified; I34.0 Nonrheumatic mitral (valve) insufficiency; Z20.822 Contact with and (suspected) exposure to COVID-19; Z79.82 Long term (current) use of aspirin; Z79.01 Long term (current) use of anticoagulants; Z98.890 Other specified postprocedural states; Z87.891 Personal history of nicotine dependence
CPT/HCPCS: 0240U; 36415; 71045; 80048; 80053; 81001; 83690; 83735; 83880; 84443; 84484; 84550; 85025; 87086; 93005; 93306; 93798; 96374; J1940

== ENCOUNTER 2020-12-14 12:42 | Inpatient (IN) | payer MEDICARE ==
[2020-12-14] MEDS ORDERED: Fentanyl 100 MCG/2 ML VIAL ONE ×2 (13:13→14:11)
[2020-12-14 13:50] LABS: #Eosinphils 0.1 thou/uL (0.0-0.7); #Lymphocytes 1.2 thou/uL (1.20-3.40); #Monocytes 0.8 thou/uL (0.11-0.59); #Neutrophils 6.6 thou/uL (1.40-6.50); %Basophils 0.2 % (0.0-1.0); %Eosinophils 1.1 % (0.0-10.0); %Lymphocytes 14.3 % (21.0-51.0); %Monocytes 8.7 % (0.0-10.0); %Neutrophils 75.7 % (42.0-75.0); Hemoglobin 11.2 g/dL (14.0-18.0); Mean Corpuscular HGB CONC 33.4 g/dL (32.0-36.0); Mean Corpuscular Hemoglobin 28.9 pg (27.0-31.0); Mean Corpuscular Volume 86.7 fL (78.0-98.0); Mean Platelet Volume 9.2 fL (7.4-10.4); Platelet Count 174 thou/uL (130-400); RBC Distribution Width 18.6 % (11.5-14.5); Red Blood Cell (RBC) Count 3.86 mill/uL (4.70-6.10); White Blood Cell (WBC) Count 8.7 thou/uL (4.8-10.8)
[2020-12-14 13:59] LABS: INR-International Normal Ratio 1.6; PTT 38.1 sec (22.9-36.1); Prothrombin Time 19.1 sec (12.0-14.7)
[2020-12-14 14:21] LABS: ALT (SGPT) 66 U/L (8-55); AST (SGOT) 74 U/L (5-34); Albumin 3.2 g/dL (3.4-4.8); Alkaline Phosphatase 114 U/L (40-110); Anion Gap 11 mmol/L (10-20); BUN (Urea Nitrogen) 19 mg/dL (8.4-25.7); Bilirubin, Total 0.6 mg/dL (0.2-1.2); Calc. Creatinine Clearance 0 mL/min (70-130); Calcium 8.2 mg/dL (7.8-10.44); Carbon Dioxide 24 mmol/L (23-31); Chloride 106 mmol/L (98-107); Globulin 2.9 g/dL (2.4-3.5); Glucose 105 mg/dL (83-110); Protein, Total 6.1 g/dL (5.8-8.1); Sodium 137 mmol/L (136-145)
[2020-12-14] MEDS ORDERED: Diazepam 10 MG/2 ML SYRINGE ONE (14:34)
[2020-12-14] MEDS ORDERED: PROPOFOL 20 ML ONE (15:17)
[2020-12-14] MEDS ORDERED: Bacitracin 1 PK ONE (15:53)
[2020-12-14] MEDS ORDERED: Ketorolac Tromethamine 30 MG/ML VIAL ONE (16:12)
[2020-12-14] MEDS ORDERED: Ondansetron ODT 4 MG TAB SL PRN (17:30)
[2020-12-14] MEDS ORDERED: Ondansetron PF 4 MG/2 ML Vial IVP PRN ×2 (17:30→17:38)
[2020-12-14] MEDS ORDERED: Dextrose 50% Abboject 50 ML SYRINGE SLOW IVP PRN (17:38)
[2020-12-14] MEDS ORDERED: Cyclobenzaprine 10 MG TAB PO PRN (17:38)
[2020-12-14] MEDS ORDERED: traMADol HCl 50 MG TAB PO PRN ×3 (17:38→18:36)
[2020-12-14] MEDS ORDERED: hydrALAZINE 20 MG/ML VIAL SLOW IVP PRN (17:38)
[2020-12-14] MEDS ORDERED: Ondansetron ODT 4 MG TAB PO PRN (17:38)
[2020-12-14] MEDS ORDERED: Dextrose 5% in Water 1,000 ML IV PRN (17:38)
[2020-12-14 17:59] VITALS: BMI 24.0
[2020-12-14] MEDS: Morphine 2 MG/ML VIAL SLOW IVP PRN ×2 (18:08→22:01)
[2020-12-14] MEDS: Acetaminophen 325 MG TAB PO SCH (18:09)
[2020-12-14] MEDS: Ibuprofen 200 MG TAB PO SCH (18:09)
[2020-12-14] MEDS: Sodium Chloride 0.9% 1,000 ML IV SCH (18:10)
[2020-12-14] MEDS ORDERED: CEFAZOLIN 2 GM in Premix Bag 1 BAG IVPB SCH (19:30)
[2020-12-14] MEDS: Melatonin 3 MG TAB PO SCH (20:44)
[2020-12-14] MEDS: Gabapentin 400 MG CAP PO SCH (20:45)
[2020-12-14] MEDS: Carvedilol 3.125 MG TAB PO SCH (20:47)
[2020-12-14] MEDS: Atorvastatin Calcium 40 MG TAB PO SCH (20:48)
[2020-12-14] MEDS: Famotidine 20 MG TAB PO SCH (20:48)
[2020-12-14] MEDS: Ezetimibe 10 MG TAB PO SCH (20:48)
[2020-12-15] MEDS: Acetaminophen 325 MG TAB PO SCH ×4 (00:18→18:02)
[2020-12-15] MEDS: traMADol HCl 50 MG TAB PO SCH ×4 (00:19→18:03)
[2020-12-15] MEDS: Sodium Chloride 0.9% 1,000 ML IV SCH (00:21)
[2020-12-15] MEDS: Ibuprofen 200 MG TAB PO SCH ×3 (02:52→18:02)
[2020-12-15 05:47] LABS: #Eosinphils 0.1 thou/uL (0.0-0.7); #Lymphocytes 1.4 thou/uL (1.20-3.40); #Monocytes 0.8 thou/uL (0.11-0.59); #Neutrophils 3.4 thou/uL (1.40-6.50); %Basophils 0.8 % (0.0-1.0); %Eosinophils 2.2 % (0.0-10.0); %Lymphocytes 23.9 % (21.0-51.0); %Monocytes 13.2 % (0.0-10.0); Hemoglobin 9.2 g/dL (14.0-18.0); Mean Corpuscular HGB CONC 32.6 g/dL (32.0-36.0); Mean Corpuscular Hemoglobin 28.4 pg (27.0-31.0); Mean Corpuscular Volume 87.1 fL (78.0-98.0); Mean Platelet Volume 9.2 fL (7.4-10.4); Platelet Count 136 thou/uL (130-400); RBC Distribution Width 18.4 % (11.5-14.5); Red Blood Cell (RBC) Count 3.22 mill/uL (4.70-6.10); White Blood Cell (WBC) Count 5.7 thou/uL (4.8-10.8)
[2020-12-15 06:16] LABS: Anion Gap 8 mmol/L (10-20); BUN (Urea Nitrogen) 18 mg/dL (8.4-25.7); Calc. Creatinine Clearance 88 mL/min (70-130); Calcium 8.1 mg/dL (7.8-10.44); Carbon Dioxide 27 mmol/L (23-31); Chloride 108 mmol/L (98-107); Glucose 89 mg/dL (83-110); Potassium 3.7 mmol/L (3.5-5.1); Sodium 139 mmol/L (136-145)
[2020-12-15] MEDS: Carvedilol 3.125 MG TAB PO SCH ×2 (06:22→21:28)
[2020-12-15] MEDS ORDERED: Fentanyl 250 MCG/5 ML VIAL ONE (07:40)
[2020-12-15] MEDS ORDERED: Neomycin-Polymyxin 1 ML AMP ONE (07:42)
[2020-12-15] MEDS ORDERED: Bupivacaine PF 0.5% 30 ML VIAL ONE (07:42)
[2020-12-15] MEDS ORDERED: Ferrous Sulfate 325 MG TAB PO SCH (08:00)
[2020-12-15] MEDS ORDERED: Ketamine 50 MG/ML (10ML VIAL) ONE (08:07)
[2020-12-15] MEDS ORDERED: Fentanyl 100 MCG/2 ML VIAL ONE ×2 (08:08→10:20)
[2020-12-15] MEDS ORDERED: Dexamethasone 20 MG/5 ML VIAL ONE (08:18)
[2020-12-15] MEDS ORDERED: Ketorolac Tromethamine 30 MG/ML VIAL ONE (08:18)
[2020-12-15] MEDS ORDERED: PROPOFOL 200 MG/20 ML VIAL ONE (08:18)
[2020-12-15] MEDS ORDERED: Lidocaine 1% PF 5 ML VIAL ONE (08:18)
[2020-12-15] MEDS ORDERED: Ondansetron PF 4 MG/2 ML Vial ONE (08:18)
[2020-12-15] MEDS ORDERED: PHENYLEPHRINE-NS 100 MCG/ML 10 ML SYRINGE ONE (08:18)
[2020-12-15] MEDS ORDERED: ePHEDrine Sulfate 50 MG/10 ML VIAL ONE (08:18)
[2020-12-15 08:27] LABS: SARS-CoV-2 NAA Rapid Test Not Detected (NotDetected)
[2020-12-15] MEDS ORDERED: Morphine Sulfate 2 MG/ML SYRINGE SLOW IVP PRN (09:57)
[2020-12-15] MEDS ORDERED: Ondansetron HCl/PF 4 MG/2 ML Vial IVP PRN (09:57)
[2020-12-15] MEDS ORDERED: PACU-Morphine 4MG/ML VIAL SLOW IVP PRN (09:57)
[2020-12-15] MEDS ORDERED: Promethazine HCl 25 MG/ML VIAL IM PRN (09:57)
[2020-12-15] MEDS ORDERED: Promethazine HCl 25 MG/ML VIAL SLOW IVP PRN (09:57)
[2020-12-15] MEDS: Famotidine 20 MG TAB PO SCH ×2 (10:12→21:28)
[2020-12-15] MEDS: Gabapentin 400 MG CAP PO SCH ×3 (10:13→21:27)
[2020-12-15] MEDS: Furosemide 40 MG TAB PO SCH ×2 (11:22→14:41)
[2020-12-15] MEDS: Morphine 2 MG/ML VIAL SLOW IVP PRN ×2 (11:25→12:45)
[2020-12-15 13:39] LABS: Hemoglobin 10.1 g/dL (14.0-18.0)
[2020-12-15] MEDS: Amiodarone 200 MG TAB PO SCH (14:42)
[2020-12-15] MEDS: CEFAZOLIN 2 GM in Premix Bag 1 BAG IVPB SCH (16:08)
[2020-12-15] MEDS: Melatonin 3 MG TAB PO SCH (21:26)
[2020-12-15] MEDS: Atorvastatin Calcium 40 MG TAB PO SCH (21:27)
[2020-12-15] MEDS: Ezetimibe 10 MG TAB PO SCH (21:27)
[2020-12-15] MEDS: Apixaban 5 MG TAB PO SCH (21:28)
[2020-12-16] MEDS: CEFAZOLIN 2 GM in Premix Bag 1 BAG IVPB SCH ×4 (00:20→23:48)
[2020-12-16] MEDS: traMADol HCl 50 MG TAB PO SCH ×5 (00:21→23:48)
[2020-12-16] MEDS: Acetaminophen 325 MG TAB PO SCH ×5 (00:22→23:48)
[2020-12-16 05:19] LABS: #Lymphocytes 0.8 thou/uL (1.20-3.40); #Neutrophils 6.5 thou/uL (1.40-6.50); %Basophils 0.2 % (0.0-1.0); %Eosinophils 0.1 % (0.0-10.0); %Lymphocytes 10.1 % (21.0-51.0); %Monocytes 11.6 % (0.0-10.0); Mean Corpuscular HGB CONC 31.8 g/dL (32.0-36.0); Mean Corpuscular Hemoglobin 27.9 pg (27.0-31.0); Mean Platelet Volume 8.9 fL (7.4-10.4); Platelet Count 135 thou/uL (130-400); RBC Distribution Width 18.3 % (11.5-14.5); Red Blood Cell (RBC) Count 3.22 mill/uL (4.70-6.10); White Blood Cell (WBC) Count 8.3 thou/uL (4.8-10.8)
[2020-12-16 05:42] LABS: Anion Gap 11 mmol/L (10-20); BUN (Urea Nitrogen) 17 mg/dL (8.4-25.7); Calc. Creatinine Clearance 81 mL/min (70-130); Calcium 8.5 mg/dL (7.8-10.44); Carbon Dioxide 27 mmol/L (23-31); Chloride 106 mmol/L (98-107); Glucose 122 mg/dL (83-110); Phosphorus 3.3 mg/dL (2.3-4.7); Potassium 4.7 mmol/L (3.5-5.1); Sodium 139 mmol/L (136-145)
[2020-12-16] MEDS: Ibuprofen 200 MG TAB PO SCH ×3 (06:18→17:15)
[2020-12-16] MEDS: Ferrous Sulfate 325 MG TAB PO SCH ×2 (08:57→16:10)
[2020-12-16] MEDS: Polyethylene Glycol 3350 17 GM Packet PO SCH (08:59)
[2020-12-16] MEDS: Ascorbic Acid 500 mg Chewable Tablet PO SCH ×2 (08:59→20:41)
[2020-12-16] MEDS: Famotidine 20 MG TAB PO SCH ×2 (08:59→20:41)
[2020-12-16] MEDS: Senokot S 8.6-50 MG TAB PO SCH ×2 (08:59→20:42)
[2020-12-16] MEDS: Aspirin 81 mg Enteric Coated Tablet PO SCH (09:19)
[2020-12-16] MEDS: Apixaban 5 MG TAB PO SCH ×2 (09:19→20:41)
[2020-12-16] MEDS: Amiodarone 200 MG TAB PO SCH (09:20)
[2020-12-16] MEDS: Furosemide 40 MG TAB PO SCH ×2 (09:20→15:00)
[2020-12-16] MEDS: Carvedilol 3.125 MG TAB PO SCH ×2 (09:20→20:42)
[2020-12-16] MEDS: Gabapentin 400 MG CAP PO SCH ×3 (09:24→20:41)
[2020-12-16] MEDS ORDERED: Bacitracin 1 PK TOP PRN (12:19)
[2020-12-16] MEDS: Atorvastatin Calcium 40 MG TAB PO SCH (20:41)
[2020-12-16] MEDS: Ezetimibe 10 MG TAB PO SCH (20:41)
[2020-12-16] MEDS: Melatonin 3 MG TAB PO SCH (20:41)
[2020-12-17] MEDS: Ibuprofen 200 MG TAB PO SCH ×3 (02:41→17:31)
[2020-12-17] MEDS: traMADol HCl 50 MG TAB PO SCH ×3 (05:43→17:32)
[2020-12-17] MEDS: Acetaminophen 325 MG TAB PO SCH ×3 (05:43→17:31)
[2020-12-17] MEDS: Amiodarone 200 MG TAB PO SCH (08:44)
[2020-12-17] MEDS: Carvedilol 3.125 MG TAB PO SCH ×2 (08:44→20:32)
[2020-12-17] MEDS: Ferrous Sulfate 325 MG TAB PO SCH ×2 (08:46→17:31)
[2020-12-17] MEDS: Senokot S 8.6-50 MG TAB PO SCH ×2 (08:46→20:31)
[2020-12-17] MEDS: Furosemide 40 MG TAB PO SCH ×2 (08:47→15:43)
[2020-12-17] MEDS: Gabapentin 400 MG CAP PO SCH ×3 (08:47→20:32)
[2020-12-17] MEDS: Apixaban 5 MG TAB PO SCH ×2 (08:49→20:33)
[2020-12-17] MEDS: Cholecalciferol 1,000 UNITS (25 MCG) TAB PO SCH (08:49)
[2020-12-17] MEDS: Aspirin 81 mg Enteric Coated Tablet PO SCH (08:49)
[2020-12-17] MEDS: Ascorbic Acid 500 mg Chewable Tablet PO SCH ×2 (08:50→20:31)
[2020-12-17] MEDS: CEFAZOLIN 2 GM in Premix Bag 1 BAG IVPB SCH (10:08)
[2020-12-17] MEDS: Polyethylene Glycol 3350 17 GM Packet PO SCH (10:09)
[2020-12-17] MEDS ORDERED: Fentanyl 250 MCG/5 ML VIAL ONE (12:28)
[2020-12-17] MEDS: Melatonin 3 MG TAB PO SCH (20:31)
[2020-12-17] MEDS: Ezetimibe 10 MG TAB PO SCH (20:31)
[2020-12-17] MEDS: Atorvastatin Calcium 40 MG TAB PO SCH (20:33)
[2020-12-18] MEDS: Acetaminophen 325 MG TAB PO SCH ×3 (00:39→11:58)
[2020-12-18] MEDS: Ibuprofen 200 MG TAB PO SCH ×2 (00:40→09:21)
[2020-12-18] MEDS: traMADol HCl 50 MG TAB PO SCH ×2 (00:40→06:13)
[2020-12-18] MEDS: Senokot S 8.6-50 MG TAB PO SCH (09:18)
[2020-12-18] MEDS: Aspirin 81 mg Enteric Coated Tablet PO SCH (09:18)
[2020-12-18] MEDS: Ascorbic Acid 500 mg Chewable Tablet PO SCH (09:18)
[2020-12-18] MEDS: Cholecalciferol 1,000 UNITS (25 MCG) TAB PO SCH (09:18)
[2020-12-18] MEDS: Ferrous Sulfate 325 MG TAB PO SCH (09:18)
[2020-12-18] MEDS: Apixaban 5 MG TAB PO SCH (09:19)
[2020-12-18] MEDS: Furosemide 40 MG TAB PO SCH ×2 (09:19→14:13)
[2020-12-18] MEDS: Gabapentin 400 MG CAP PO SCH ×2 (09:20→14:12)
[2020-12-18] MEDS: Amiodarone 200 MG TAB PO SCH (09:20)
[2020-12-18] MEDS: Carvedilol 3.125 MG TAB PO SCH (09:21)
[2020-12-18] MEDS: Polyethylene Glycol 3350 17 GM Packet PO SCH (09:22)
[2020-12-18 11:42] VITALS: BP 128/83; TEMP 98.1
[2020-12-18] MEDS ORDERED: traMADol HCl 50 MG TAB PO SCH (12:00)
== END 2020-12-18 16:50 | DRG 493 ==
LOC: ERS 12:42 → SURG A 15:00
PROVIDERS: ADMIT Surgery; ATTEND Surgery
PROC: 0QSG04Z Reposition Right Tibia with Internal Fixation Device, Open Approach (ICD-10-PCS; principal; 2020-12-15)
DX: S82.191A Other fracture of upper end of right tibia, initial encounter for closed fracture (principal); D68.8 Other specified coagulation defects; Z20.822 Contact with and (suspected) exposure to COVID-19; I48.91 Unspecified atrial fibrillation; K21.9 Gastro-esophageal reflux disease without esophagitis; I10 Essential (primary) hypertension; W18.30XA Fall on same level, unspecified, initial encounter; E78.00 Pure hypercholesterolemia, unspecified; Z87.891 Personal history of nicotine dependence; Z79.82 Long term (current) use of aspirin; Z79.01 Long term (current) use of anticoagulants; Z79.899 Other long term (current) drug therapy
CPT/HCPCS: 27532; 27752; 36415; 71045; 72170; 76000; 80048; 80053; 83735; 84100; 85025; 85610; 85730; 86850; 86900; 86901; 93005; 96374; 96375; 96376; 99152; 99153; C1713; J0690; J1100; J1885; J2270; J2405; J2704; J3010; J3360; S0020; U0002; U0003; U0005

== ENCOUNTER 2021-06-13 10:58 | Outpatient (CLI) | payer MEDICARE | END 2021-06-13 10:59 | disposition home or self-care (01) | LOC: TBSIIMAG 10:58 | PROVIDERS: ATTEND Physician Assistant | DX: M54.50 Low back pain, unspecified (principal); M47.816 Spondylosis without myelopathy or radiculopathy, lumbar region | CPT/HCPCS: 72100 ==

== ENCOUNTER 2021-06-24 05:49 | Day surgery (SDC) | payer MEDICARE ==
[2021-06-20 15:38] VITALS: BMI 24.0
[2021-06-24] MEDS ORDERED: Heparin 10,000 UNITS/ 10 ML VIAL ONE (06:40)
[2021-06-24] MEDS ORDERED: Protamine Sulfate 50 MG/5 ML VIAL ONE (06:40)
[2021-06-24] MEDS ORDERED: Heparin 25,000 units/D5W 500 ML ONE (06:40)
[2021-06-24] MEDS ORDERED: SUGAMMADEX SODIUM 200 MG/2 ML VIAL ONE (07:04)
[2021-06-24] MEDS ORDERED: Fentanyl 100 MCG/2 ML VIAL ONE ×2 (07:04→11:16)
[2021-06-24] MEDS ORDERED: Rocuronium Bromide 50 MG/5 ML VIAL ONE (07:15)
[2021-06-24] MEDS ORDERED: Ondansetron PF 4 MG/2 ML Vial ONE (07:45)
[2021-06-24] MEDS ORDERED: Dexamethasone 20 MG/5 ML VIAL ONE (07:45)
[2021-06-24] MEDS ORDERED: PROPOFOL 200 MG/20 ML VIAL ONE (07:45)
[2021-06-24] MEDS ORDERED: Lidocaine 1% PF 5 ML VIAL ONE (07:45)
[2021-06-24] MEDS ORDERED: Rocuronium Bromide 10 MG/ML (10ML VIAL) ONE (07:45)
[2021-06-24] MEDS ORDERED: Phenylephrine 10 MG/ML VIAL ONE (07:45)
[2021-06-24] MEDS ORDERED: Isoproterenol 0.2 MG/1 ML AMP ONE (07:49)
== END 2021-06-24 15:39 | disposition home or self-care (01) ==
LOC: CCL 05:49
PROVIDERS: ATTEND Internal Medicine Cardiovascular Disease
PROC: B244ZZZ Ultrasonography of Right Heart (ICD-10-PCS; principal; 2021-06-24)
PROC: 02583ZZ Destruction of Conduction Mechanism, Percutaneous Approach (ICD-10-PCS; 2021-06-24)
PROC: 02K83ZZ Map Conduction Mechanism, Percutaneous Approach (ICD-10-PCS; 2021-06-24)
PROC: 4A023FZ Measurement of Cardiac Rhythm, Percutaneous Approach (ICD-10-PCS; 2021-06-24)
PROC: 4A0234Z Measurement of Cardiac Electrical Activity, Percutaneous Approach (ICD-10-PCS; 2021-06-24)
DX: I48.19 Other persistent atrial fibrillation (principal); I48.92 Unspecified atrial flutter; I50.9 Heart failure, unspecified; I42.9 Cardiomyopathy, unspecified; I08.3 Combined rheumatic disorders of mitral, aortic and tricuspid valves; Z79.01 Long term (current) use of anticoagulants; Z79.82 Long term (current) use of aspirin; Z79.899 Other long term (current) drug therapy; Z98.1 Arthrodesis status
CPT/HCPCS: 85347; 93005; 93306; 93613; 93622; 93623; 93655; 93656; 93657; 93662; C1732; C1759; C1776; J1100; J1644; J2370; J2405; J2704; J2720; J3010

== ENCOUNTER 2021-09-05 12:26 | Outpatient (CLI) | payer MEDICARE | END 2021-09-05 12:27 | disposition home or self-care (01) | LOC: TBSIIMAG 12:26 | PROVIDERS: ATTEND Surgery | DX: M54.2 Cervicalgia (principal); M54.50 Low back pain, unspecified; M54.6 Pain in thoracic spine; M47.812 Spondylosis without myelopathy or radiculopathy, cervical region; Z98.1 Arthrodesis status; M43.16 Spondylolisthesis, lumbar region; M51.36 Other intervertebral disc degeneration, lumbar region; Q06.4 Hydromyelia; M40.204 Unspecified kyphosis, thoracic region; M80.08XA Age-related osteoporosis with current pathological fracture, vertebra(e), initial encounter for fracture; M47.816 Spondylosis without myelopathy or radiculopathy, lumbar region; M48.061 Spinal stenosis, lumbar region without neurogenic claudication; M48.07 Spinal stenosis, lumbosacral region; M48.05 Spinal stenosis, thoracolumbar region; S22.059A Unspecified fracture of T5-T6 vertebra, initial encounter for closed fracture | CPT/HCPCS: 72040; 72100; 72141; 72146; 72148 ==

== ENCOUNTER 2021-10-30 11:03 | Outpatient (CLI) | payer MEDICARE | END 2021-10-30 11:04 | disposition home or self-care (01) | LOC: TBSIIMAG 11:03 | PROVIDERS: ATTEND Surgery | DX: M54.14 Radiculopathy, thoracic region (principal); M43.9 Deforming dorsopathy, unspecified; Z98.890 Other specified postprocedural states | CPT/HCPCS: 72072 ==

== ENCOUNTER 2021-11-07 08:05 | Outpatient (CLI) | payer MEDICARE | END 2021-11-07 08:06 | disposition home or self-care (01) | LOC: TBSIIMAG 08:05 | PROVIDERS: ATTEND Family Medicine | DX: S22.080G Wedge compression fracture of T11-T12 vertebra, subsequent encounter for fracture with delayed healing (principal); G89.4 Chronic pain syndrome; M48.061 Spinal stenosis, lumbar region without neurogenic claudication; M48.07 Spinal stenosis, lumbosacral region | CPT/HCPCS: 72148 ==

== ENCOUNTER 2021-12-25 08:52 | Outpatient (CLI) | payer MEDICARE | END 2021-12-25 08:53 | disposition home or self-care (01) | LOC: BICMAMMO 08:52 | PROVIDERS: ATTEND Family Medicine | DX: N62 Hypertrophy of breast (principal) | CPT/HCPCS: 77066; G0279 ==

== ENCOUNTER 2022-04-11 08:38 | Outpatient (CLI) | payer MEDICARE ==
[2022-04-11] MEDS ORDERED: Iopamidol 370 76% 100 ML VIAL ONE (09:21)
== END 2022-04-11 08:39 | disposition home or self-care (01) ==
LOC: CT 08:38
PROVIDERS: ATTEND Specialist
DX: I72.9 Aneurysm of unspecified site (principal); N62 Hypertrophy of breast; K57.30 Diverticulosis of large intestine without perforation or abscess without bleeding; K74.60 Unspecified cirrhosis of liver; I86.4 Gastric varices; I77.1 Stricture of artery
CPT/HCPCS: 75635; 82565; Q9967

== ENCOUNTER 2022-04-11 10:33 | Emergency (ER) | payer MEDICARE ==
[2022-04-11 11:18] LABS: Hemoglobin 13.2 g/dL (14.0-18.0); Mean Corpuscular HGB CONC 32.6 g/dL (32.0-36.0); Mean Corpuscular Hemoglobin 31.2 pg (27.0-31.0); Mean Corpuscular Volume 95.5 fL (78.0-98.0); RBC Distribution Width 12.8 % (11.5-14.5); Red Blood Cell (RBC) Count 4.23 mill/uL (4.70-6.10); White Blood Cell (WBC) Count 2.8 thou/uL (4.8-10.8)
[2022-04-11 11:19] LABS: #Lymphocytes 0.4 thou/uL (1.20-3.40); #Neutrophils 2.3 thou/uL (1.40-6.50); %Basophils 0.4 % (0.0-1.0); %Lymphocytes 14.5 % (21.0-51.0); %Monocytes 0.4 % (0.0-10.0); %Neutrophils 83.7 % (42.0-75.0)
[2022-04-11 11:25] LABS: ALT (SGPT) 22 U/L (8-55); AST (SGOT) 28 U/L (5-34); Albumin 3.9 g/dL (3.4-4.8); Alkaline Phosphatase 121 U/L (40-110); Anion Gap 13 mmol/L (10-20); BUN (Urea Nitrogen) 15 mg/dL (8.4-25.7); Bilirubin, Total 1.4 mg/dL (0.2-1.2); Calc. Creatinine Clearance 0 mL/min (70-130); Calcium 9.9 mg/dL (7.8-10.44); Carbon Dioxide 29 mmol/L (23-31); Chloride 102 mmol/L (98-107); Estimated GFR 89; Globulin 3.3 g/dL (2.4-3.5); Glucose 95 mg/dL (83-110); Protein, Total 7.2 g/dL (5.8-8.1); Sodium 140 mmol/L (136-145)
[2022-04-11 11:29] LABS: MDiff Complete? YES; Platelet Count 85 thou/uL (130-400); Platelet Morphology Comment Appears Decreased; Polychromasia SLIGHT = 2-3 cells (100X) (0-2/hpf)
[2022-04-11] MEDS ORDERED: Ondansetron PF 4 MG/2 ML Vial ONE (12:07)
== END 2022-04-11 13:54 | disposition home or self-care (01) ==
LOC: ERS 10:33
DX: G25.1 Drug-induced tremor (principal); T50.8X5A Adverse effect of diagnostic agents, initial encounter; R19.00 Intra-abdominal and pelvic swelling, mass and lump, unspecified site; I48.91 Unspecified atrial fibrillation; E78.5 Hyperlipidemia, unspecified; I10 Essential (primary) hypertension; K21.9 Gastro-esophageal reflux disease without esophagitis; Z87.891 Personal history of nicotine dependence; I72.9 Aneurysm of unspecified site; N62 Hypertrophy of breast; K57.30 Diverticulosis of large intestine without perforation or abscess without bleeding; K74.60 Unspecified cirrhosis of liver; I86.4 Gastric varices; I77.1 Stricture of artery
CPT/HCPCS: 36415; 71045; 75635; 80053; 82565; 84484; 85025; 93005; 96374; J2405; Q9967

== ENCOUNTER 2022-06-16 11:44 | Outpatient (CLI) | payer MEDICARE ==
[2022-06-16 13:21] LABS: Hemoglobin 13.3 g/dL (13.5-17.5); Mean Corpuscular HGB CONC 33.8 g/dL (32.0-36.0); Mean Corpuscular Hemoglobin 30.6 pg (27.0-33.0); Mean Corpuscular Volume 90.8 fl (81.2-95.1); Mean Platelet Volume 9.7 fl (7.4-10.4); Platelet Count 135 10x3/uL (150-450); RBC Distribution Width 14.6 % (11.5-14.5); Red Blood Cell (RBC) Count 4.34 10x6/uL (4.32-5.72); White Blood Cell (WBC) Count 4.5 10x3/uL (3.5-10.5)
[2022-06-16 13:23] LABS: Anion Gap 13 mmol/L (10-20); BUN (Urea Nitrogen) 11 mg/dL (8.4-25.7); Calc. Creatinine Clearance 0 mL/min (70-130); Calcium 9.5 mg/dL (7.8-10.44); Carbon Dioxide 31 mmol/L (23-31); Chloride 102 mmol/L (98-107); Estimated GFR 95; Glucose 95 mg/dL (83-110); Potassium 5.1 mmol/L (3.5-5.1); Sodium 141 mmol/L (136-145)
== END 2022-06-16 11:45 | disposition home or self-care (01) ==
LOC: LABBT 11:44
PROVIDERS: ATTEND Thoracic Surgery (Cardiothoracic Vascular Surgery)
DX: Z01.812 Encounter for preprocedural laboratory examination (principal); S30.1XXA Contusion of abdominal wall, initial encounter
CPT/HCPCS: 80048; 85027

== ENCOUNTER 2022-06-18 05:46 | Day surgery (SDC) | payer MEDICARE ==
[2022-06-16 14:53] VITALS: BMI 25.5
[2022-06-18] MEDS ORDERED: Bupivacaine HCl 0.5%/Epinephrine 1:200,000/PF 30 ml Vial ONE (06:18)
[2022-06-18] MEDS ORDERED: Dexamethasone 4 mg/ml Vial ONE (06:18)
[2022-06-18] MEDS ORDERED: Heparin 5,000 UNITS/ML VIAL ONE (06:57)
[2022-06-18] MEDS ORDERED: Protamine Sulfate 50 MG/5 ML VIAL ONE (06:57)
[2022-06-18] MEDS ORDERED: CEFAZOLIN 2 GM VIAL ONE (07:16)
[2022-06-18] MEDS ORDERED: Sodium Chloride 0.9% 100 ML ONE (07:16)
[2022-06-18] MEDS ORDERED: Ondansetron PF 4 MG/2 ML Vial ONE (07:17)
[2022-06-18] MEDS ORDERED: Phenylephrine 10 MG/ML VIAL ONE (07:17)
[2022-06-18] MEDS ORDERED: Dexamethasone 20 MG/5 ML VIAL ONE (07:17)
[2022-06-18] MEDS ORDERED: PROPOFOL 200 MG/20 ML VIAL ONE (07:17)
[2022-06-18] MEDS ORDERED: ePHEDrine 50 MG/ML VIAL ONE (07:17)
[2022-06-18] MEDS ORDERED: Norepinephrine 4 MG/4 ML VIAL ONE (07:19)
[2022-06-18] MEDS ORDERED: fentaNYL PF 100 MCG/2 ML SYRINGE ONE (07:19)
[2022-06-18] MEDS ORDERED: FENTANYL 50 MCG/ML 1 ML VIAL ONE ×3 (08:37→09:06)
== END 2022-06-18 11:15 | disposition home or self-care (01) ==
LOC: SDC 05:46
PROVIDERS: ATTEND Thoracic Surgery (Cardiothoracic Vascular Surgery)
PROC: 04QL0ZZ Repair Left Femoral Artery, Open Approach (ICD-10-PCS; principal; 2022-06-18)
DX: I72.4 Aneurysm of artery of lower extremity (principal); M19.90 Unspecified osteoarthritis, unspecified site; I48.0 Paroxysmal atrial fibrillation; Z87.891 Personal history of nicotine dependence; Z79.01 Long term (current) use of anticoagulants; Z79.82 Long term (current) use of aspirin; Z79.83 Long term (current) use of bisphosphonates; Z79.899 Other long term (current) drug therapy; Z91.041 Radiographic dye allergy status
CPT/HCPCS: 35141; J3010; J1100; J1644; J2370; J2405; J2704; J2720; J3490

== ENCOUNTER 2022-09-14 23:10 | Inpatient (IN) | payer MEDICARE ==
[2022-09-14] MEDS ORDERED: EPINEPHrine 1 MG/10 ML Abboject SYRINGE ONE (23:18)
[2022-09-14] MEDS ORDERED: Atropine Sulfate 1 mg/10 ml Syringe ONE (23:18)
[2022-09-14] MEDS ORDERED: Rocuronium Bromide 10 MG/ML (10ML VIAL) ONE (23:18)
[2022-09-14] MEDS ORDERED: Calcium Chloride 1 GM/10 ML Abboject SYRINGE ONE (23:18)
[2022-09-14] MEDS ORDERED: Sodium Bicarb 50 MEQ/50 ML Abboject 8.4% SYRINGE ONE (23:18)
[2022-09-14] MEDS ORDERED: NOREPINEPHRINE 8 MG/250 ML-D5W 250 ML ONE (23:22)
[2022-09-14 23:40] LABS: Analyzer IN Cardio ER; CO2 Tension 53.8 mmHg (35.0-45.0); Calcium, Ionized (arterial) 1.04 mmol/L (1.12-1.30); Carboxyhemoglobin (COHb) 0.3 gm% (0.0-3.0); Hemoglobin (Hb) 10.9 g/dL (14.0-18.0); O2 Tension (PaO2), arterial 520.6 mmHg (> 70.0); Potassium - ABG Lab 4.33 mmol/L (3.70-5.30)
[2022-09-14] MEDS ORDERED: Octreotide Acetate 500 MCG/ML VIAL ONE (23:44)
[2022-09-14] MEDS ORDERED: EPINEPHrine 1 MG/ML VIAL ONE (23:48)
[2022-09-14] MEDS ORDERED: Pantoprazole 40 MG VIAL ONE (23:49)
[2022-09-14 23:50] LABS: Mean Corpuscular HGB CONC 31.9 g/dL (32.0-36.0); Mean Corpuscular Volume 97.1 fl (78.0-98.0); RBC Distribution Width 12.9 % (11.5-14.5); Red Blood Cell (RBC) Count 3.22 mill/uL (4.70-6.10); White Blood Cell (WBC) Count 10.7 10x3/uL (4.8-10.8)
[2022-09-14 23:52] LABS: pH, Arterial 6.93 (7.35-7.45)
[2022-09-14 23:53] LABS: Puncture Site LRA
[2022-09-14] MEDS ORDERED: Octreotide Acetate 1,250 MCG in Sodium Chloride 0.9% 250 ML 250 ML IVPB SCH (23:59)
[2022-09-15] MEDS ORDERED: EPINEPHrine 1 MG/ML VIAL ONE (00:04)
[2022-09-15 00:06] LABS: Band 9 % (5-11); Lymphocytes 61 % (21-51); MDiff Complete? YES; Mean Platelet Volume 8.3 fL (7.4-10.4); Monocytes 5 % (0-10); Neutrophil 22 % (42-75); Platelet Count 69 10x3/uL (130-400); Platelet Morphology Comment Appears Decreased; Reactive Lymphocytes 3 % (0-10)
[2022-09-15 00:09] LABS: INR-International Normal Ratio 1.8; PTT 32.5 sec (22.9-36.1)
[2022-09-15 00:14] LABS: ALT (SGPT) 21 U/L (8-55); AST (SGOT) 26 U/L (5-34); Albumin 2.6 g/dL (3.4-4.8); Alkaline Phosphatase 96 U/L (40-110); Anion Gap 27 mmol/L (10-20); BUN (Urea Nitrogen) 16 mg/dL (8.4-25.7); Bilirubin, Total 0.6 mg/dL (0.2-1.2); CK (CPK) 84 U/L (30-200); Calc. Creatinine Clearance 0 mL/min (70-130); Calcium 8.1 mg/dL (7.8-10.44); Carbon Dioxide 11 mmol/L (23-31); Chloride 112 mmol/L (98-107); Estimated GFR 69; Globulin 2.2 g/dL (2.4-3.5); Glucose 194 mg/dL (83-110); Lipase 53 U/L (8-78); Potassium 3.9 mmol/L (3.5-5.1); Protein, Total 4.8 g/dL (5.8-8.1); Sodium 146 mmol/L (136-145)
[2022-09-15] MEDS ORDERED: HUMAN PROTHROMBIN COMPLX IV SCH (00:15)
[2022-09-15] MEDS ORDERED: ADMIXTURE FEE IV SCH (00:15)
[2022-09-15] MEDS ORDERED: Ketamine 50 MG/ML (10ML VIAL) ONE (00:15)
[2022-09-15] MEDS ORDERED: Fentanyl CADD 100 ML IV SCH (00:15)
[2022-09-15 00:28] LABS: Bilirubin Negative (Negative); Blood, Urine Negative (Negative); Clarity Clear (Clear); Glucose, Urine (Dipstick) Normal (Negative); Ketone, Urine Negative (Negative); Leukocyte Negative Leu/uL (Negative); Nitrite Negative (Negative); Protein, Urine (Dipstick) Negative (Neg-Trace); Specific Gravity, Urine 1.023 (1.002-1.036); Urobilinogen 6 mg/dL (Less than 2)
[2022-09-15] MEDS ORDERED: EPINEPHrine 4 MG in Dextrose 5% in Water 250 ML IVP SCH (00:30)
[2022-09-15 00:34] LABS: CKMB 2.6 ng/mL (0-6.6)
[2022-09-15] MEDS ORDERED: Phenylephrine 10 MG/ML VIAL ONE (00:43)
[2022-09-15] MEDS ORDERED: Albumin 5% 500 ML ONE (00:43)
[2022-09-15] MEDS ORDERED: Norepinephrine 4 MG/4 ML VIAL ONE (00:43)
[2022-09-15] MEDS ORDERED: VANCOMYCIN 1.75 GM/500 ML BAG 1.75 GM in Premix Bag 1 BAG IVPB SCH (01:00)
[2022-09-15] MEDS ORDERED: ePHEDrine 50 MG/ML VIAL ONE (01:11)
[2022-09-15] MEDS ORDERED: Rocuronium Bromide 10 MG/ML (10ML VIAL) ONE (01:11)
[2022-09-15] MEDS ORDERED: Calcium Chloride 1 GM/10 ML Abboject SYRINGE ONE ×6 (01:11→05:03)
[2022-09-15] MEDS ORDERED: fentaNYL PF 100 MCG/2 ML SYRINGE ONE (01:39)
[2022-09-15] MEDS ORDERED: Midazolam HCl 2 mg/2 ml Vial ONE (01:39)
[2022-09-15] MEDS ORDERED: Sodium Bicarb 50 MEQ/50 ML VIAL ONE ×3 (01:46→03:15)
[2022-09-15] MEDS ORDERED: Sodium Bicarbonate 2.5 MEQ/5 ML VIAL ONE (01:46)
[2022-09-15] MEDS ORDERED: EPINEPHrine 1 MG/ML AMP ONE (01:56)
[2022-09-15] MEDS ORDERED: Dextrose 50% Abboject 50 ML SYRINGE SLOW IVP PRN (02:15)
[2022-09-15] MEDS ORDERED: Ipratropium/Albuterol 3 ML NEB NEB PRN (02:15)
[2022-09-15] MEDS ORDERED: Dextrose 5% in Water 1,000 ML IV PRN (02:15)
[2022-09-15] MEDS ORDERED: Ondansetron PF 4 MG/2 ML Vial IVP PRN (02:15)
[2022-09-15 02:45] LABS: Actual Bicarbonate (HCO3a) 16.6 mEq/L (22-28); Base Excess (BEa) -11.2 mEq/L (-2.0 to +3.0); CO2 Tension 47.1 mmHg (35.0-45.0); Calcium, Ionized (arterial) 1.29 mmol/L (1.12-1.30); Carboxyhemoglobin (COHb) 0.6 gm% (0.0-3.0); Hemoglobin (Hb) 7.7 g/dL (14.0-18.0); O2 Tension (PaO2), arterial 402.6 mmHg (> 70.0); Potassium - ABG Lab 3.33 mmol/L (3.70-5.30)
[2022-09-15] MEDS: Sodium Bicarb 50 MEQ/50 ML VIAL ONE ×2 (02:45→04:05)
[2022-09-15 02:49] LABS: #Eosinphils 0.1 thou/uL (0.0-0.7); #Monocytes 0.1 thou/uL (0.11-0.59); #Neutrophils 7.2 thou/uL (1.40-6.50); %Eosinophils 0.7 % (0.0-10.0); %Lymphocytes 21.6 % (21.0-51.0); %Monocytes 1.4 % (0.0-10.0); %Neutrophils 76.3 % (42.0-75.0); Hemoglobin 7.7 g/dL (14.0-18.0); Mean Corpuscular HGB CONC 34.3 g/dL (32.0-36.0); Mean Corpuscular Hemoglobin 32.5 pg (27.0-31.0); Mean Corpuscular Volume 94.9 fl (78.0-98.0); Platelet Count 63 10x3/uL (130-400); RBC Distribution Width 12.4 % (11.5-14.5); Red Blood Cell (RBC) Count 2.37 mill/uL (4.70-6.10); White Blood Cell (WBC) Count 9.5 10x3/uL (4.8-10.8)
[2022-09-15 03:05] LABS: Puncture Site line; pH, Arterial 7.17 (7.35-7.45)
[2022-09-15 03:06] LABS: ALV-art Gradient 251.525 mmHg (0-20)
[2022-09-15 03:06] LABS: Lactic Acid 13.3 mmol/L (0.5-2.2)
[2022-09-15 03:11] LABS: Anion Gap 25 mmol/L (10-20); BUN (Urea Nitrogen) 15 mg/dL (8.4-25.7); Calc. Creatinine Clearance 0 mL/min (70-130); Calcium 12.3 mg/dL (7.8-10.44); Carbon Dioxide 16 mmol/L (23-31); Chloride 110 mmol/L (98-107); Estimated GFR 58; Glucose 234 mg/dL (83-110); Magnesium 2.5 mg/dL (1.6-2.6); Phosphorus 8.8 mg/dL (2.3-4.7); Potassium 3.6 mmol/L (3.5-5.1); Sodium 147 mmol/L (136-145)
[2022-09-15] MEDS ORDERED: Sodium Chloride 0.9% 1,000 ML IV SCH ×2 (03:15→04:20)
[2022-09-15] MEDS ORDERED: Lactated Ringer's 1,000 ML IV SCH ×2 (03:15→03:20)
[2022-09-15] MEDS ORDERED: NOREPINEPHRINE 8 MG/250 ML-D5W 250 ML ONE (03:16)
[2022-09-15] MEDS ORDERED: NOREPINEPHRINE 8 MG/250 ML-D5W 250 ML IVPB SCH (03:30)
[2022-09-15 03:58] LABS: Actual Bicarbonate (HCO3a) 21.8 mEq/L (22-28); Base Excess (BEa) -3.9 mEq/L (-2.0 to +3.0); CO2 Tension 43.1 mmHg (35.0-45.0); Calcium, Ionized (arterial) 0.98 mmol/L (1.12-1.30); Carboxyhemoglobin (COHb) 1.6 gm% (0.0-3.0); O2 Tension (PaO2), arterial 156.4 mmHg (> 70.0); Potassium - ABG Lab 3.63 mmol/L (3.70-5.30); pH, Arterial 7.32 (7.35-7.45)
[2022-09-15 04:10] LABS: ALV-art Gradient 217.525 mmHg (0-20); Hemoglobin (Hb) 5.1 g/dL (14.0-18.0); Puncture Site line
[2022-09-15 04:50] LABS: Troponin I 2.872 ng/mL (< 0.028)
[2022-09-15] MEDS ORDERED: EPINEPHrine 1 MG/10 ML Abboject SYRINGE ONE (05:05)
[2022-09-15 05:33] LABS: INR-International Normal Ratio 2.7; Prothrombin Time 29.7 sec (12.0-14.7)
[2022-09-15 05:34] LABS: PTT 92.3 sec (22.9-36.1)
[2022-09-15] MEDS: Potassium Chloride 20 MEQ in Premix Bag 1 BAG IVPB SCH ×2 (05:45→06:11)
[2022-09-15 06:16] LABS: Lactic Acid 15.3 mmol/L (0.5-2.2)
[2022-09-15] MEDS ORDERED: Famotidine/PF 20 mg/2ml Vial SLOW IVP SCH (09:00)
[2022-09-15 15:05] LABS: Analyzer IN Cardio OR; Base Excess (BEa) -17.9 mEq/L (-2.0 to +3.0); CO2 Tension 38.3 mmHg (35.0-45.0); Calcium, Ionized (arterial) 0.83 mmol/L (1.12-1.30); Carboxyhemoglobin (COHb) 0.4 gm% (0.0-3.0); O2 Tension (PaO2), arterial 196.1 mmHg (> 70.0); Potassium - ABG Lab 3.83 mmol/L (3.70-5.30)
[2022-09-15 15:08] LABS: pH, Arterial 7.08 (7.35-7.45)
[2022-09-15 15:09] LABS: Puncture Site Arterial Line
== END 2022-09-15 05:28 | disposition expired | DRG 799 ==
LOC: ERS 23:10 → SDC/OP 09-15 01:23 → CCU 09-15 02:41
PROVIDERS: ADMIT Surgery; ATTEND Surgery
PROC: 07BP0ZZ Excision of Spleen, Open Approach (ICD-10-PCS; principal; 2022-09-15)
PROC: 30233L1 Transfusion of Nonautologous Fresh Plasma into Peripheral Vein, Percutaneous Approach (ICD-10-PCS; 2022-09-15)
PROC: 30233N1 Transfusion of Nonautologous Red Blood Cells into Peripheral Vein, Percutaneous Approach (ICD-10-PCS; 2022-09-15)
PROC: 30233R1 Transfusion of Nonautologous Platelets into Peripheral Vein, Percutaneous Approach (ICD-10-PCS; 2022-09-15)
PROC: 30233M1 Transfusion of Nonautologous Plasma Cryoprecipitate into Peripheral Vein, Percutaneous Approach (ICD-10-PCS; 2022-09-15)
PROC: 03HY32Z Insertion of Monitoring Device into Upper Artery, Percutaneous Approach (ICD-10-PCS; 2022-09-15)
PROC: 02HV33Z Insertion of Infusion Device into Superior Vena Cava, Percutaneous Approach (ICD-10-PCS; 2022-09-15)
PROC: 0D9670Z Drainage of Stomach with Drainage Device, Via Natural or Artificial Opening (ICD-10-PCS; 2022-09-15)
PROC: 5A1935Z Respiratory Ventilation, Less than 24 Consecutive Hours (ICD-10-PCS; 2022-09-15)
PROC: 0BH17EZ Insertion of Endotracheal Airway into Trachea, Via Natural or Artificial Opening (ICD-10-PCS; 2022-09-15)
PROC: 3E043XZ Introduction of Vasopressor into Central Vein, Percutaneous Approach (ICD-10-PCS; 2022-09-15)
PROC: 5A12012 Performance of Cardiac Output, Single, Manual (ICD-10-PCS; 2022-09-15)
DX: S36.039A Unspecified laceration of spleen, initial encounter (principal); J96.00 Acute respiratory failure, unspecified whether with hypoxia or hypercapnia; E87.20 Acidosis, unspecified; I48.91 Unspecified atrial fibrillation; I10 Essential (primary) hypertension; K21.9 Gastro-esophageal reflux disease without esophagitis; R57.1 Hypovolemic shock; W18.30XA Fall on same level, unspecified, initial encounter; I25.10 Atherosclerotic heart disease of native coronary artery without angina pectoris; I73.9 Peripheral vascular disease, unspecified; Z91.041 Radiographic dye allergy status; Z79.899 Other long term (current) drug therapy; Z78.1 Physical restraint status
CPT/HCPCS: 36415; 36416; 36430; 36600; 71045; 71275; 74174; 80048; 80053; 81003; 82550; 82553; 82805; 83605; 83690; 83735; 84100; 84443; 84484; 85025; 85610; 85730; 86850; 86900; 86901; 88305; 93005; 94002; C9113; G0390; J0171; J0461; J2250; J2354; J2370; J2597; J3010; J3370; J3490; J7050; J7070; J7120; J7168; P9016; P9035; P9045; P9048; P9059